=== PATIENT | male | born 1955 | race Caucasian/White ===

== ENCOUNTER 2016-06-22 20:52 | Emergency (ER) | payer OTHER ==
[2016-06-22 21:48] LABS: BASO % 0.3 % (0.0-1.0); EOS # 0.1 K/mm3 (0.0-0.50); EOS % 1.2 % (0.0-3.0); LARGE UNSTAINED CELL # 0.3 K/mm3 (0.0-0.4); LYMPH # 2.3 K/mm3 (1.5-4.5); LYMPH % 33.5 % (24.0-44.0); MEAN CORPUSCULAR HGB CONC 33.9 g/dl (32.0-36.5); MEAN CORPUSCULAR VOLUME 88.4 fl (80.0-96.0); MONO # 0.4 K/mm3 (0.0-0.8); MONO % 6.3 % (0.0-5.0); NEUTROPHILS # 3.7 K/mm3 (1.8-7.7); NEUTROPHILS % 54.6 % (36.0-66.0); PLATELET COUNT, AUTOMATED 181 k/mm3 (150-450); WHITE BLOOD COUNT 6.8 K/mm3 (4.0-10.0)
[2016-06-22 21:54] LABS: ANION GAP 8 MEQ/L (8-16); BLOOD UREA NITROGEN 18 MG/DL (7-18); CARBON DIOXIDE LEVEL 26 MEQ/L (21-32); CHLORIDE LEVEL 108 MEQ/L (98-107); CREATININE FOR GFR 1.16 MG/DL (0.70-1.30); GLOMERULAR FILTRATION RATE > 60.0 (>49); GLUCOSE, FASTING 76 MG/DL (80-110); POTASSIUM SERUM 3.9 MEQ/L (3.5-5.1); SODIUM LEVEL 142 MEQ/L (136-145)
[2016-06-22 22:00] LABS: INR 1.05
--- NOTE | 2016-06-22 23:09 | ECGEPIP ---
Stationary ECG Study [facility] - ED Test Date: 2016-06-22 Pat Name: LAMAR PIRES Department: Room: - Gender: M Party Demonstrator: LEONARD : 1955 Requested By: Destin Iqbal Order Number: [id number] Reading MD: Destin Sullivan Measurements Intervals [place] Rate: 99 P: MA: 0 QRS: 32 QRSD: 96 T: 48 QT: 356 QTc: 459 Interpretive Statements SINUS TACHYCARDIA WITH 1ST DEGREE AV BLOCK NSTTW ABNORMALITIES NO PRIORS Electronically Signed On 06-22-2016 23:08:43 EST by Destin Sullivan
--- NOTE | 2016-06-22 23:37 | EDDOCDS ---
Nurse's Notes [facility] Name: Ta Pressley Age: 60 yrs Sex: Male : 1955 Arrival Date: 06/22/2016 Time: 20:52 Bed 11 Private MD: Sal Dueñas Diagnosis: Cerebral infarction;Nicotine dependence Presentation: 06/22 20:55 Presenting complaint: EMS states: hx of stroke in December 2015. tonight started to have mlc headache only on right side, left arm heaviness and weakness. EMS states pt unsteady on feet, states pt was having a difficult time forming sentences upon arrival. upon arrival to ED, pt forming sentences, no neuro deficits noted. The last date and time the patient was known to be well was on June 21, 2016. The last date and time the patient was known to be well was was at an unknown time. No acute neurological deficit is noted. The patients blood glucose was checked before arriving to the hospital and was found to be normal. Adult Sepsis Screening: The patient does not have new or worsening altered mentation. Patient's respiratory rate is less than 22. Systolic blood pressure is greater than 100. Patient has a qSOFA score of 0- Negative Sepsis Screen. Suicide/Homicide risk assessment- the patient denies having any suicidal and/or homicidal ideations and does not present with any other emotional, behavioral or mental health complaints. Status: Patient is not a director of housing and energy services or dependent. Transition of care: patient was not received from another setting of care. 20:55 Acuity: YURIDIA Level 3 [facility] 20:55 Method Of Arrival: Ambulance [facility] Triage Assessment: 21:01 The onset of the patients symptoms was more than three hours ago. General: Appears in [facility] no apparent distress, comfortable, Behavior is appropriate for age, cooperative. Pain: Denies pain. HIV screening NA for this visit Offered previously. The patient is triaged at the bedside. See Assessment in Nurses Notes section of ED record. Neurological: Level of Consciousness is awake, alert, obeys commands, Oriented to person, place, time, Police Booking Officer are equal bilaterally Speech is normal, Facial symmetry appears normal, Denies paresthesias numbness headache Reports. Respiratory: Airway is patent Respiratory effort is even, unlabored, Respiratory pattern is regular. Derm: Skin is normal. Historical: - Allergies: No known drug Allergies; - Home Meds: 1. aspirin 325 mg Oral tab once daily (Last dose: 06/22/2016 08:00) 2. atorvastatin 40 mg oral tab once daily (Last dose: 06/22/2016 19:00) 3. fluoxetine 40 mg Oral cap once daily (Last dose: 06/22/2016 19:00) 4. ibuprofen 600 mg Oral tab 1 tab every 6 hours (Last dose: 06/22/2016 17:00) - PMHx: CVA; Hypercholesterolemia; Depression; - PSHx: Hernia repair; finger surgery; - The history from nurses notes was reviewed: but there are no nursing notes, or only partial notes available at the time of my charting. - Social history: Smoking status: Patient uses tobacco products, light tobacco smoker. No barriers to communication noted, The patient speaks fluent Tajik. - : The pt / caregiver states he / she is not on anticoagulants. Home medication list is obtained from the patient. - Hospitalizations: : No recent hospitalization is reported. - Exposure Risk Screening:: None identified. - Immunization history:: All immunizations up-to-date. - Family history: Not pertinent. - Social history:: the patient smokes cigarettes 1ppd the patient drinks alcohol. Screenin:36 Screening information is obtained from the patient. Fall risk: No risks identified. mlc Assistance ADL's: requires no assistance with activities of daily living. Abuse/DV Screen: The patient / caregiver reports he/she is: not in a situation that causes fear, pain or injury. Nutritional screening: No deficits noted. Advance Directives: Currently, there is a health care proxy, Susy Pressley, daughter. There is no active DNR order. There is no living will. There is an active Power of Automotive Wholesale Parts Advisor, Susy Pressley, daughter . home support is adequate. Assessment: 21:36 General: Appears in no apparent distress, comfortable, Behavior is appropriate for age, mlc cooperative, pleasant. Pain: Denies pain. Neurological: Level of Consciousness is awake, alert, obeys commands, Oriented to person, place, time, Police Booking Officer are equal bilaterally Moves all extremities. Speech is normal, Facial symmetry appears normal, Pupils are PERRLA, Denies numbness headache. Cardiovascular: Capillary refill < 3 seconds Heart tones S1 S2 present Rhythm is regular Chest pain is denied. Respiratory: Airway is patent Respiratory effort is even, unlabored, Respiratory pattern is regular, Breath sounds are diminished in left posterior lower lobe and right posterior lower lobe Reports cough that is non-productive, daughter reports that she has been diagnosed with pneumonia. GI: Abdomen is non- distended Bowel sounds present X 4 quads. Abd is soft and non tender X 4 quads. Derm: Skin is pink, warm & dry. 22:10 Reassessment: Patient appears in no apparent distress at this time. General: no new mlc neuro deficits. . Neurological: Level of Consciousness is awake, alert, obeys commands, Oriented to person, place, time. Respiratory: Airway is patent Respiratory effort is even, unlabored, Respiratory pattern is regular. 22:50 Reassessment: Patient appears in no apparent distress at this time. Patient denies pain mlc at this time. no changes since prior. resp easy/unlabored. no neuro deficits noted. . 23:19 Reassessment: Patient appears in no apparent distress at this time. pt resting mlc comfortably in bed, resp easy/unlabored. no changes since prior . 23:31 General: Appears in no apparent distress, comfortable, Behavior is cooperative. Pain: mlc Denies pain. Neurological: Level of Consciousness is awake, alert, Oriented to person, place, time, Police Booking Officer are equal bilaterally Moves all extremities. Respiratory: Airway is patent Respiratory effort is even, unlabored, Respiratory pattern is regular. Derm: Skin is pink, warm & dry. Vital Signs: 21:08 BP 155 / 98; Pulse 98; Resp 18; Temp 97.1(O); Pulse Ox 97% on R/A; Weight 71.21 kg (R); mlc Height 5 ft. 6 in. (167.64 cm); Pain 0/10; 21:26 BP 130 / 89 (auto/); mlc 21:27 Pulse 100 MON; mlc 21:39 Weight 73.48 kg (M); Height 5 ft. 6 in. (167.64 cm); kb5 21:41 BP 122 / 85 (auto/); mlc 21:42 Pulse 100 MON; Pulse Ox 93% ; mlc 21:54 BP 120 / 85 (auto/); mlc 21:55 Pulse 98 MON; Pulse Ox 81% ; mlc 22:09 BP 119 / 84 (auto/); mlc 22:09 Pulse 98 MON; Pulse Ox 96% ; mlc 22:24 BP 133 / 91 (auto/); mlc 22:28 Pulse 102 MON; mlc 22:39 BP 139 / 94 (auto/); mlc 22:40 Pulse 100 MON; Pulse Ox 97% ; mlc 22:54 BP 123 / 84 (auto/); mlc 22:55 Pulse 100 MON; mlc 23:09 BP 125 / 85 (auto/); mlc 23:12 Pulse 102 MON; Pulse Ox 96% ; mlc 23:24 BP 121 / 84 (auto/); mlc 23:25 Pulse 102 MON; Pulse Ox 96% ; mlc 23:32 BP 127 / 87; Pulse 103; Resp 18; Temp 97.7; Pulse Ox 96% on R/A; Pain 0/10; mlc 21:39 Body Mass Index 26.15 (73.48 kg, 167.64 cm) kb5 Vitals: 21:01 Glucose Measurement 127 per EMS. Log In Time N/A - ambulance arrival. [facility] ED Course: 20:53 Patient visited by Henry Crowe, Tin Dipper. ml3 20:53 Sal Dueñas is Private Physician. ml3 20:53 Patient moved to Waiting ml3 20:54 Malathi Aguirre,SNOW is Primary Nurse. ml3 20:54 Patient moved to 11 ml3 20:56 Destin Sullivan MD is Attending Physician. pc 20:59 Triage Initiated mlc 21:05 Patient visited by Destin Sullivan MD. pc 21:30 Basic Metabolic Profile Sent. mlc 21:30 CBC with Diff Sent. mlc 21:30 Partial Thromboplastin Time Sent. mlc 21:30 Prothrombin Time Profile\E\INR Sent. mlc 21:30 Type & Screen Sent. mlc 21:31 Maintain field IV. Dressing intact. Site clean & dry. Gauge & site: 18g right wrist. mlc 21:31 Inserted saline lock: 18 gauge in left antecubital area and blood collected. The mlc patient tolerated the procedure well. 21:34 Patient visited by Kamran Knapp PCA. kb5 21:34 EKG done. (by ED staff). Reviewed by Destin Sullivan MD. kb5 21:36 The patient / caregiver is instructed regarding the plan of care and ED course. Cardiac mlc monitor on. Pulse ox on. NIBP on. 21:43 Patient visited by Malathi Aguirre RN. mlc 22:02 Patient visited by Kamran Knapp PCA. kb5 22:08 [facility] Payment Agreement was scanned into [employer] and attached to record. gjb 22:11 Patient visited by Malathi Aguirre RN. mlc 22:13 CT Head Without Contrast Returned. EDMS 22:20 Patient visited by Laura Cage LPN. cp1 22:50 Patient visited by Malathi Aguirre,SNOW. mlc 23:19 Patient visited by Malathi Aguirre RN. mlc 23:32 No procedures done that require assistance. [facility] Point of Care Testing: Blood Glucose: 21:27 Blood Glucose: 71 mg/dL; [facility] Ranges: Order Results: Lab Order: Basic Metabolic Profile; SPEC'M 06/22/16 21:29 Test: GLUCOSE, FASTING; Value: 76; Range: 80-110; Abnormal: Below low normal; Units: MG/DL; Status: F Test: BLOOD UREA NITROGEN; Value: 18; Range: 7-18; Units: MG/DL; Status: F Test: CREATININE FOR GFR; Value: 1.16; Range: 0.70-1.30; Units: MG/DL; Status: F Test: GLOMERULAR FILTRATION RATE; Value: > 60.0; Range: >49; Status: F Test: SODIUM LEVEL; Value: 142; Range: 136-145; Units: MEQ/L; Status: F Test: POTASSIUM SERUM; Value: 3.9; Range: 3.5-5.1; Units: MEQ/L; Status: F Test: CHLORIDE LEVEL; Value: 108; Range: 98-107; Abnormal: Above high normal; Units: MEQ/L; Status: F Test: CARBON DIOXIDE LEVEL; Value: 26; Range: 21-32; Units: MEQ/L; Status: F Test: ANION GAP; Value: 8; Range: 8-16; Units: MEQ/L; Status: F Test: CALCIUM LEVEL; Value: 9.0; Range: 8.8-10.2; Units: MG/DL; Status: F Test Note: ; Units are mL/min/1.73 m2 Chronic Kidney Disease Staging per NKF: Stage I & II GFR >=60 Normal to Mildly Decreased Stage III GFR 30-59 Moderately Decreased Stage IV GFR 15-29 Severely Decreased Stage V GFR <15 Very Little GFR Left ESRD GFR <15 on [employer] Lab Order: CBC with Diff; SPEC'M 06/22/16 21:29 Test: WHITE BLOOD COUNT; Value: 6.8; Range: 4.0-10.0; Units: K/mm3; Status: F Test: RED BLOOD COUNT; Value: 5.55; Range: 4.30-6.10; Units: M/mm3; Status: F Test: HEMOGLOBIN; Value: 16.7; Range: 14.0-18.0; Units: g/dl; Status: F Test: HEMATOCRIT; Value: 49.1; Range: 42.0-52.0; Units: %; Status: F Test: MEAN CORPUSCULAR VOLUME; Value: 88.4; Range: 80.0-96.0; Units: fl; Status: F Test: MEAN CORPUSCULAR HEMOGLOBIN; Value: 30.0; Range: 27.0-33.0; Units: pg; Status: F Test: MEAN CORPUSCULAR HGB CONC; Value: 33.9; Range: 32.0-36.5; Units: g/dl; Status: F Test: RED CELL DISTRIBUTION WIDTH; Value: 13.0; Range: 11.5-14.5; Units: %; Status: F Test: PLATELET COUNT, AUTOMATED; Value: 181; Range: 150-450; Units: k/mm3; Status: F Test: NEUTROPHILS %; Value: 54.6; Range: 36.0-66.0; Units: %; Status: F Test: LYMPH %; Value: 33.5; Range: 24.0-44.0; Units: %; Status: F Test: MONO %; Value: 6.3; Range: 0.0-5.0; Abnormal: Above high normal; Units: %; Status: F Test: EOS %; Value: 1.2; Range: 0.0-3.0; Units: %; Status: F Test: BASO %; Value: 0.3; Range: 0.0-1.0; Units: %; Status: F Test: LARGE UNSTAINED CELL %; Value: 4.0; Range: 0.0-4.0; Units: %; Status: F Test: NEUTROPHILS #; Value: 3.7; Range: 1.8-7.7; Units: K/mm3; Status: F Test: LYMPH #; Value: 2.3; Range: 1.5-4.5; Units: K/mm3; Status: F Test: MONO #; Value: 0.4; Range: 0.0-0.8; Units: K/mm3; Status: F Test: EOS #; Value: 0.1; Range: 0.0-0.50; Units: K/mm3; Status: F Test: BASO #; Value: 0.0; Range: 0.0-0.2; Units: K/mm3; Status: F Test: LARGE UNSTAINED CELL #; Value: 0.3; Range: 0.0-0.4; Units: K/mm3; Status: F Lab Order: Partial Thromboplastin Time; [facility]06/22/16 21:29 Test: PARTIAL THROMBOPLASTIN TIME; Value: 26.6; Range: 26.6-37.1; Units: SECONDS; Status: F Lab Order: Prothrombin Time Profile\E\INR; [facility]06/22/16 21:29 Test: PROTHROMBIN TIME; Value: 13.8; Range: 12.3-14.5; Units: SECONDS; Status: F Test: INR; Value: 1.05; Status: F Test Note: ; THERAPUTIC HUMAN INR VALUES INDICATIONS NORMAL RANGES PROPHYLAXIS/TREATMENT OF: VENOUS THROMBOSIS 2.0-3.0 PULMONARY EMBOLISM 2.0-3.0 PREVENTION OF SYSTEMIC EMBOLISM FROM: TISSUE HEART VALVES 2.0-3.0 ACUTE MYOCARDIAL INFARCTION 2.0-3.0 VALVULAR HEART DISEASE 2.0-3.0 ATRIAL FIBRILLATION 2.0-3.0 MECHANICAL VALVES(HIGH RISK) 2.5-3.5 RECURRENT MYOCARDIAL INFARCTION 2.5-3.5 Lab Order: Type & Screen; 06/22/16 21:29 Test: BLOOD TYPE; Value: A POS; Status: F Test: AB SCREEN (INDIRECT RACHELLE)GEL; Value: NEGATIVE; Status: F Lab Order: Fingerstick Blood Sugar; [facility]06/[facility] 21:18 Test: BEDSIDE GLUCOSE; Value: 71; Range: 80-115; Abnormal: Below low normal; Units: MG/DL; Status: F Radiology Order: CT Head Without Contrast Test: CT Head Without Contrast REASON FOR EXAMINATION: CVA <4.5hrs; ; CLINICAL HISTORY: CVA; TECHNIQUE: Multiple axial CT images were obtained through the brain without IV contrast material.; COMMENTS:; There is normal configuration of sella turcica. There are no intra or extra-axial collections. There; is no mass effect or midline shift. There is no evidence of hematoma formation. No hydrocephalus is p; resent. The ventricles are symmetrical. No abnormal calcifications are present.; There is diffuse age-appropriate cerebellar and cerebral atrophy with proportionally dilated ventricl; es and cortical sulci.; There is a wedge-shaped hypodense area noted in the right parietal lobe compatible with ischemic stro; ke, probably subacute. Correlation with MRI with diffusion is recommended.; There are bilateral periventricular and subcortical white matter hypolucencies compatible with mild c; hronic microvascular disease.; IMPRESSION:; 1. Age-appropriate cerebellar and cerebral atrophy.; 2. Mild chronic microvascular disease.; 3. Wedge-shaped hypodense area noted in the right parietal lobe compatible with ischemic stroke, prob; ably subacute. Correlation with MRI with diffusion is recommended.; Thank you for your kind referral of this patient.; ; ; Outcome: 21:43 CT Study completed. [facility] 22:30 ER care complete, transfer ordered by Provider. 22:32 Admission hand-off: Report called to Carly Raya RN. [facility] 23:32 Discharge Assessment: Patient awake, alert and oriented x 3. No cognitive and/or mlc functional deficits noted. Patient verbalized understanding of disposition instructions. patient administered narcotics - no. The following High Risk Discharge criteria are identified: None. Transferred to [facility]. by EMS ground [facility] ambulance report to accompanying personnel Beena Stephen, location director and Hyacitnh Fonseca EMT. Condition: good Condition: stable. Property :Personal belongings accompany Pt. 23:35 Patient left the ED. [facility] Signatures: Dispatcher [employer] EDMS Destin Sullivan MD MD pc Lopresti, Mary-Elizabeth, Tin Dipper Unit ml3 Kamran Knapp, CCO CCO kb5 Laura Cage,TURNAROUND ENGINEER TURNAROUND ENGINEER cp1 Malathi Aguirre RN RN Janine Blunt MTDD
--- NOTE | 2016-06-22 23:37 | EDDOCDS ---
Physician Documentation [facility] Name: Ta Pressley Age: 60 yrs Sex: Male : 1955 Arrival Date: 06/22/2016 Time: 20:52 Bed 11 Private MD: Sal Dueñas Disposition: 06/22 22:17 Critical Care: Critical care not applicable. pc Disposition: 06/22/16 22:30 Transfer ordered to [facility]. Diagnosis are Cerebral infarction, Nicotine dependence. - Reason for transfer: Higher level of care. - Accepting physician is Dr. Hunt. - Condition is Stable. - Problem is new. - Symptoms are unchanged. HPI: 21:15 This 60 yrs old Male presents to ER via Ambulance with complaints of S/S of pc Possible Stroke. 21:15 The history is obtained from the patient. The patient presents to the emergency pc department with weakness of the left upper extremity, left lower extremity. Onset: The symptoms/episode began/occurred suddenly, at 18:00, and improved 30 minutes ago, He was sitting on his couch watching TV when his left arm "stopped working, like when I had that stroke in December". He was unable to move his arm to put on his coat. He felt "wobbly" when he was trying to alk, with his left leg feeling weak. He had a mild headache, pointing to his right temporal area, which has since resolved. He called EMS after 2-3 hours, "just to get checked out". He arrives stating his left arm is now back to normal and his leg feels "almost normal". He had a CVA in December of last year [facility] in [place], when he had these same symptoms but they did not resolve until he was seen at the hospital. He is not sure if he received thrombolytics. He is compliant with his meds but continues to smoke 1ppd.. Historical: - Allergies: No known drug Allergies; - Home Meds: 1. aspirin 325 mg Oral tab once daily (Last dose: 06/22/2016 08:00) 2. atorvastatin 40 mg oral tab once daily (Last dose: 06/22/2016 19:00) 3. fluoxetine 40 mg Oral cap once daily (Last dose: 06/22/2016 19:00) 4. ibuprofen 600 mg Oral tab 1 tab every 6 hours (Last dose: 06/22/2016 17:00) - PMHx: CVA; Hypercholesterolemia; Depression; - PSHx: Hernia repair; finger surgery; - The history from nurses notes was reviewed: but there are no nursing notes, or only partial notes available at the time of my charting. - Social history: Smoking status: Patient uses tobacco products, light tobacco smoker. No barriers to communication noted, The patient speaks fluent Kyrgyz. - : The pt / caregiver states he / she is not on anticoagulants. Home medication list is obtained from the patient. - Hospitalizations: : No recent hospitalization is reported. - Exposure Risk Screening:: None identified. - Immunization history:: All immunizations up-to-date. - Family history: Not pertinent. - Social history:: the patient smokes cigarettes 1ppd the patient drinks alcohol. ROS: 21:15 All systems are negative except as listed. pc Exam: 21:15 General Appearance: no acute distress, alert. pc 21:15 EENT: normal eye inspection, ears, nose and throat normal, pharynx normal, mucous membranes moist no apparent trauma. 21:15 Neck: The exam reveals no acute abnormalities. ROM is normal and painless. No nuchal rigidity is noted.. 21:15 Respiratory: no respiratory distress, normal breath sounds, chest non-tender. 21:15 CVS: regular pulse rate, regular rhythm, normal S1 and S2, no murmurs, strong peripheral pulses, normal capillary refill. 21:15 Abdomen: soft, non-tender, no organomegaly, normal bowel sounds. 21:15 Back: normal inspection. 21:15 Skin: skin color is normal, warm, dry. 21:15 Extremities: The extremities have a grossly normal appearance, are non-tender, without acute ROM abnormalities, no pedal edema. 21:15 Neuro: oriented x 3, cranial nerves normal as tested, 4/5 strength in LLE with drift at 5 seconds. NIHSS of 1. 21:15 Neuro: no sensory deficits, Cerebellar function: normal finger to nose testing, Romberg testing is negative. 21:15 Psych: normal mood. Vital Signs: 21:08 BP 155 / 98; Pulse 98; Resp 18; Temp 97.1(O); Pulse Ox 97% on R/A; Weight 71.21 kg / mlc 156.99 lbs (R); Height 5 ft. 6 in. (167.64 cm); Pain 0/10; 21:26 BP 130 / 89 (auto/); mlc 21:27 Pulse 100 MON; mlc 21:39 Weight 73.48 kg / 162 lbs (M); Height 5 ft. 6 in. (167.64 cm); kb5 21:41 BP 122 / 85 (auto/); mlc 21:42 Pulse 100 MON; Pulse Ox 93% ; mlc 21:54 BP 120 / 85 (auto/); mlc 21:55 Pulse 98 MON; Pulse Ox 81% ; mlc 22:09 BP 119 / 84 (auto/); mlc 22:09 Pulse 98 MON; Pulse Ox 96% ; mlc 22:24 BP 133 / 91 (auto/); mlc 22:28 Pulse 102 MON; mlc 22:39 BP 139 / 94 (auto/); mlc 22:40 Pulse 100 MON; Pulse Ox 97% ; mlc 22:54 BP 123 / 84 (auto/); mlc 22:55 Pulse 100 MON; mlc 23:09 BP 125 / 85 (auto/); mlc 23:12 Pulse 102 MON; Pulse Ox 96% ; mlc 23:24 BP 121 / 84 (auto/); mlc 23:25 Pulse 102 MON; Pulse Ox 96% ; mlc 23:32 BP 127 / 87; Pulse 103; Resp 18; Temp 97.7; Pulse Ox 96% on R/A; Pain 0/10; mlc 21:39 Body Mass Index 26.15 (73.48 kg, 167.64 cm) kb5 MDM: 21:09 Consult [facility]: Telemedicine Stroke Attending ordered. pc 21:09 RN interventions must not delay CT ordered. pc 21:09 Air Intelligence Specialist/Pulse Ox/q 15 min VS ordered. pc 21:09 Accucheck ordered. pc 21:09 IV Saline Lock ordered. pc 21:09 Neuro VS q 15 Minutes ordered. pc 21:09 Patient must be on CC stretcher and weighed via bed scale ordered. pc 21:09 Rhythm Strip to chart ordered. pc 21:10 Basic Metabolic Profile Ordered. EDMS 21:10 CBC with Diff Ordered. EDMS 21:10 Partial Thromboplastin Time Ordered. EDMS 21:10 Prothrombin Time Profile\\E\\INR Ordered. EDMS 21:10 Type & Screen Ordered. EDMS 21:10 CT Head Without Contrast Ordered. EDMS 21:11 Chest, 1 View Ordered. EDMS 21:11 ECG WITH READING ER PHYS+CARDIAG ordered. EDMS 21:15 Differential Diagnosis: CVA with NIHSS of 1, presenting with resolving symptoms at 3+ pc hours after onset. Plan: CT, d/w Neurology. 21:33 Test interpretation: EKG. pc 21:35 Fingerstick Blood Sugar Ordered. EDMS 21:54 Financial registration complete. gjb 21:59 Basic Metabolic Profile Reviewed. pc 21:59 CBC with Diff Reviewed. pc 21:59 Fingerstick Blood Sugar Reviewed. pc 21:59 Partial Thromboplastin Time Reviewed. pc 22:08 [facility] [place] Payment Agreement was scanned into [employer] and attached to record. gjb 22:17 Data reviewed: old medical records, vital signs, nurses notes, EKG(s), lab test pc results, all radiology studies and available results. Test interpretation: LAB - all labs as ordered have been reviewed, interpreted and considered in the overall management of the clinical presentation; X-RAY - interpreted by me, 1 view chest chronic obstructive pulmonary disease pattern, interpreted by Radiologist and personally reviewed, discussed with Radiologist, Head CT; old right parietal CVA, else nad. The patient has been re-examined and re-evaluated. There is no appreciated change of the patient's symptoms at this time. Physician consultation: Dr. Guerra regarding patient's condition, and he, the telemedicine Stroke attending at [facility], advises that at [id number], he is out side of the window for IV tPA but that he should be transferred to [facility] Stroke attending.. 22:17 Physician consultation: Dr. Hunt was contacted at 22:19, regarding patient's pc condition, and she accepts in transfer to [facility]. Disposition: The historical points, examination findings, and any diagnostic results supporting the provided diagnosis, were discussed with the patient or legal guardian. The decision to transfer to the patient to another facility was explained. 22:35 Partial Thromboplastin Time Reviewed. pc 22:35 Prothrombin Time Profile\\E\\INR Reviewed. pc 22:35 Type & Screen Reviewed. pc 22:35 CT Head Without Contrast Reviewed. pc 23:08 Consult [facility] Transfer Center: Telemedicine Stroke Attending complete. jun EC:33 Rate is 99 beats/min. Rhythm is regular, Normal Sinus Rhythm with 1st degree heart pc block. QRS [place] is Normal. [place] interval is prolonged. QRS interval is normal. QT interval is normal. No Q waves. T waves are Normal. No ST changes noted. Clinical impression: Normal Sinus Rhythm and 1st degree heart block. Point of Care Testing: Blood Glucose: 21:27 Blood Glucose: 71 mg/dL; [facility] [place] Ranges: Signatures: Dispatcher [employer] Destin Dunn MD MD pc Newman, SNOW Mercado RN, Mandy, RN RN mlc Beck, Gabriela gjb The chart was reviewed and I authenticate all verbal orders and agree with the evaluation and treatment provided.Corrections: (The following items were deleted from the chart) 22:17 21:15 Onset: The symptoms/episode began/occurred suddenly, at 18:00, and improved 30 pc minutes ago, He was sitting on his couch watching TV when his left arm "stopped working, like when I had that stroke in December". He was unable to move his arm to put on his coat. He felt "wobbly" when he was trying to alk, with his left leg feeling weak. He had a mild headache, pointing to his right temporal area, which has since resolved. He called EMS after 2-3 hours, "just to get checked out". He arrives stating his left arm is now back to normal and his leg feels "almost normal". He had a CVA in December of last year [facility] in [place], when he had these same symptoms but they did not resolve until he was seen at the hospital. He is not sure if he received thrombolytics. He is compliant with his meds but continues to smoke 1ppd., pc Attachments: 22:08 [facility] Payment Agreement aaron STEPHEN
--- NOTE | 2016-06-23 09:54 | REP ---
Portable chest x-ray: Single view. History: CVA less than 4.5 hours. Findings: The lungs are well inflated and clear. Pleural angles are sharp. Heart size is normal. Pulmonary vasculature is not increased. No significant bony abnormality is seen. Impression: No active disease. Signed by Ronni James MD 06/23/2016 10:23 A
--- NOTE | 2016-06-25 12:03 | EDDOCDS ---
Physician Documentation [facility] Name: Ta Pressley Age: 60 yrs Sex: Male : 1955 Arrival Date: 06/22/2016 Time: 20:52 Bed 11 Private MD: Sal Dueñas Disposition: 06/22 22:17 Critical Care: Critical care not applicable. pc Disposition: 06/22/16 22:30 Transfer ordered to [facility]. Diagnosis are Cerebral infarction, Nicotine dependence. - Reason for transfer: Higher level of care. - Accepting physician is Dr. Hunt. - Condition is Stable. - Problem is new. - Symptoms are unchanged. HPI: 21:15 This 60 yrs old Male presents to ER via Ambulance with complaints of S/S of pc Possible Stroke. 21:15 The history is obtained from the patient. The patient presents to the emergency pc department with weakness of the left upper extremity, left lower extremity. Onset: The symptoms/episode began/occurred suddenly, at 18:00, and improved 30 minutes ago, He was sitting on his couch watching TV when his left arm "stopped working, like when I had that stroke in December". He was unable to move his arm to put on his coat. He felt "wobbly" when he was trying to alk, with his left leg feeling weak. He had a mild headache, pointing to his right temporal area, which has since resolved. He called EMS after 2-3 hours, "just to get checked out". He arrives stating his left arm is now back to normal and his leg feels "almost normal". He had a CVA in December of last year [facility] in [place], when he had these same symptoms but they did not resolve until he was seen at the hospital. He is not sure if he received thrombolytics. He is compliant with his meds but continues to smoke 1ppd.. Historical: - Allergies: No known drug Allergies; - Home Meds: 1. aspirin 325 mg Oral tab once daily (Last dose: 06/22/2016 08:00) 2. atorvastatin 40 mg oral tab once daily (Last dose: 06/22/2016 19:00) 3. fluoxetine 40 mg Oral cap once daily (Last dose: 06/22/2016 19:00) 4. ibuprofen 600 mg Oral tab 1 tab every 6 hours (Last dose: 06/22/2016 17:00) - PMHx: CVA; Hypercholesterolemia; Depression; - PSHx: Hernia repair; finger surgery; - The history from nurses notes was reviewed: but there are no nursing notes, or only partial notes available at the time of my charting. - Social history: Smoking status: Patient uses tobacco products, light tobacco smoker. No barriers to communication noted, The patient speaks fluent Kiswahili. - : The pt / caregiver states he / she is not on anticoagulants. Home medication list is obtained from the patient. - Hospitalizations: : No recent hospitalization is reported. - Exposure Risk Screening:: None identified. - Immunization history:: All immunizations up-to-date. - Family history: Not pertinent. - Social history:: the patient smokes cigarettes 1ppd the patient drinks alcohol. ROS: 21:15 All systems are negative except as listed. pc Exam: 21:15 General Appearance: no acute distress, alert. pc 21:15 EENT: normal eye inspection, ears, nose and throat normal, pharynx normal, mucous membranes moist no apparent trauma. 21:15 Neck: The exam reveals no acute abnormalities. ROM is normal and painless. No nuchal rigidity is noted.. 21:15 Respiratory: no respiratory distress, normal breath sounds, chest non-tender. 21:15 CVS: regular pulse rate, regular rhythm, normal S1 and S2, no murmurs, strong peripheral pulses, normal capillary refill. 21:15 Abdomen: soft, non-tender, no organomegaly, normal bowel sounds. 21:15 Back: normal inspection. 21:15 Skin: skin color is normal, warm, dry. 21:15 Extremities: The extremities have a grossly normal appearance, are non-tender, without acute ROM abnormalities, no pedal edema. 21:15 Neuro: oriented x 3, cranial nerves normal as tested, 4/5 strength in LLE with drift at 5 seconds. NIHSS of 1. 21:15 Neuro: no sensory deficits, Cerebellar function: normal finger to nose testing, Romberg testing is negative. 21:15 Psych: normal mood. Vital Signs: 21:08 BP 155 / 98; Pulse 98; Resp 18; Temp 97.1(O); Pulse Ox 97% on R/A; Weight 71.21 kg / mlc 156.99 lbs (R); Height 5 ft. 6 in. (167.64 cm); Pain 0/10; 21:26 BP 130 / 89 (auto/); mlc 21:27 Pulse 100 MON; mlc 21:39 Weight 73.48 kg / 162 lbs (M); Height 5 ft. 6 in. (167.64 cm); kb5 21:41 BP 122 / 85 (auto/); mlc 21:42 Pulse 100 MON; Pulse Ox 93% ; mlc 21:54 BP 120 / 85 (auto/); mlc 21:55 Pulse 98 MON; Pulse Ox 81% ; mlc 22:09 BP 119 / 84 (auto/); mlc 22:09 Pulse 98 MON; Pulse Ox 96% ; mlc 22:24 BP 133 / 91 (auto/); mlc 22:28 Pulse 102 MON; mlc 22:39 BP 139 / 94 (auto/); mlc 22:40 Pulse 100 MON; Pulse Ox 97% ; mlc 22:54 BP 123 / 84 (auto/); mlc 22:55 Pulse 100 MON; mlc 23:09 BP 125 / 85 (auto/); mlc 23:12 Pulse 102 MON; Pulse Ox 96% ; mlc 23:24 BP 121 / 84 (auto/); mlc 23:25 Pulse 102 MON; Pulse Ox 96% ; mlc 23:32 BP 127 / 87; Pulse 103; Resp 18; Temp 97.7; Pulse Ox 96% on R/A; Pain 0/10; mlc 21:39 Body Mass Index 26.15 (73.48 kg, 167.64 cm) kb5 MDM: 21:[address] [facility]: Telemedicine Stroke Attending ordered. pc 21:09 RN interventions must not delay CT ordered. pc 21:09 Gasoline Tractor Operator/Pulse Ox/q 15 min VS ordered. pc 21:09 Accucheck ordered. pc 21:09 IV Saline Lock ordered. pc 21:09 Neuro VS q 15 Minutes ordered. pc 21:09 Patient must be on CC stretcher and weighed via bed scale ordered. pc 21:09 Rhythm Strip to chart ordered. pc 21:10 Basic Metabolic Profile Ordered. EDMS 21:10 CBC with Diff Ordered. EDMS 21:10 Partial Thromboplastin Time Ordered. EDMS 21:10 Prothrombin Time Profile\\E\\INR Ordered. EDMS 21:10 Type & Screen Ordered. EDMS 21:10 CT Head Without Contrast Ordered. EDMS 21:11 Chest, 1 View Ordered. EDMS 21:11 ECG WITH READING ER PHYS+CARDIAG ordered. EDMS 21:15 Differential Diagnosis: CVA with NIHSS of 1, presenting with resolving symptoms at 3+ pc hours after onset. Plan: CT, d/w Neurology. 21:33 Test interpretation: EKG. pc 21:35 Fingerstick Blood Sugar Ordered. EDMS 21:54 Financial registration complete. gjb 21:59 Basic Metabolic Profile Reviewed. pc 21:59 CBC with Diff Reviewed. pc 21:59 Fingerstick Blood Sugar Reviewed. pc 21:59 Partial Thromboplastin Time Reviewed. pc 22:08 [facility] [place] Agreement was scanned into [employer] and attached to record. gjb 22:17 Data reviewed: old medical records, vital signs, nurses notes, EKG(s), lab test pc results, all radiology studies and available results. Test interpretation: LAB - all labs as ordered have been reviewed, interpreted and considered in the overall management of the clinical presentation; X-RAY - interpreted by me, 1 view chest chronic obstructive pulmonary disease pattern, interpreted by Radiologist and personally reviewed, discussed with Radiologist, Head CT; old right parietal CVA, else nad. The patient has been re-examined and re-evaluated. There is no appreciated change of the patient's symptoms at this time. Physician consultation: Dr. Guerra regarding patient's condition, and he, the telemedicine Stroke attending at [facility], advises that at [id number], he is out side of the window for IV tPA but that he should be transferred to [facility] Stroke attending.. 22:17 Physician consultation: Dr. Hunt was contacted at 22:19, regarding patient's pc condition, and she accepts in transfer to [facility]. Disposition: The historical points, examination findings, and any diagnostic results supporting the provided diagnosis, were discussed with the patient or legal guardian. The decision to transfer to the patient to another facility was explained. 22:35 Partial Thromboplastin Time Reviewed. pc 22:35 Prothrombin Time Profile\\E\\INR Reviewed. pc 22:35 Type & Screen Reviewed. pc 22:35 CT Head Without Contrast Reviewed. pc 23:08 Consult [facility] Transfer Center: Telemedicine Stroke Attending complete. jun 16 11:17 ECG/EKG was scanned into [employer] and attached to record. gb 11:17 Trend VS was scanned into [employer] and attached to record. gb 11:17 Radiology Report was scanned into [employer] and attached to record. 11:18 Other: STROKE SCALE was scanned into [employer] and attached to record. EC/07 21:33 Rate is 99 beats/min. Rhythm is regular, Normal Sinus Rhythm with 1st degree heart pc block. QRS [place] is Normal. [place] interval is prolonged. QRS interval is normal. QT interval is normal. No Q waves. T waves are Normal. No ST changes noted. Clinical impression: Normal Sinus Rhythm and 1st degree heart block. Point of Care Testing: Blood Glucose: 21:27 Blood Glucose: 71 mg/dL; [facility] [place] Ranges: Signatures: Dispatcher [employer] EDMS Destin Sullivan MD MD pc Newman, Jill New, RN RN jan Barnhardt, Gloria, Reg Reg gb Booth, Mandy, RN RN mlc Beck, Gabriela gjb The chart was reviewed and I authenticate all verbal orders and agree with the evaluation and treatment provided.Corrections: (The following items were deleted from the chart) 22:17 21:15 Onset: The symptoms/episode began/occurred suddenly, at 18:00, and improved 30 pc minutes ago, He was sitting on his couch watching TV when his left arm "stopped working, like when I had that stroke in December". He was unable to move his arm to put on his coat. He felt "wobbly" when he was trying to alk, with his left leg feeling weak. He had a mild headache, pointing to his right temporal area, which has since resolved. He called EMS after 2-3 hours, "just to get checked out". He arrives stating his left arm is now back to normal and his leg feels "almost normal". He had a CVA in December of last year [facility] in [place], when he had these same symptoms but they did not resolve until he was seen at the hospital. He is not sure if he received thrombolytics. He is compliant with his meds but continues to smoke 1ppd., pc Attachments: 22:08 [facility] Payment Agreement gjb 06/23 11:17 ECG/EKG Chart Complete MTDD
--- NOTE | 2016-06-25 12:03 | EDDOCDS ---
Nurse's Notes [facility] Name: Ta Pires Age: 60 yrs Sex: Male : 1955 Arrival Date: 06/22/2016 Time: 20:52 Bed 11 Private MD: Sal Dueñas Diagnosis: Cerebral infarction;Nicotine dependence Presentation: 06/22 20:55 Presenting complaint: EMS states: hx of stroke in December 2015. tonight started to have mlc headache only on right side, left arm heaviness and weakness. EMS states pt unsteady on feet, states pt was having a difficult time forming sentences upon arrival. upon arrival to ED, pt forming sentences, no neuro deficits noted. The last date and time the patient was known to be well was on June 21, 2016. The last date and time the patient was known to be well was was at an unknown time. No acute neurological deficit is noted. The patients blood glucose was checked before arriving to the hospital and was found to be normal. Adult Sepsis Screening: The patient does not have new or worsening altered mentation. Patient's respiratory rate is less than 22. Systolic blood pressure is greater than 100. Patient has a qSOFA score of 0- Negative Sepsis Screen. Suicide/Homicide risk assessment- the patient denies having any suicidal and/or homicidal ideations and does not present with any other emotional, behavioral or mental health complaints. Status: Patient is not a director of cloud services or dependent. Transition of care: patient was not received from another setting of care. 20:55 Acuity: YURIDIA Level 3 [facility] 20:55 Method Of Arrival: Ambulance [facility] Triage Assessment: 21:01 The onset of the patients symptoms was more than three hours ago. General: Appears in [facility] no apparent distress, comfortable, Behavior is appropriate for age, cooperative. Pain: Denies pain. HIV screening NA for this visit Offered previously. The patient is triaged at the bedside. See Assessment in Nurses Notes section of ED record. Neurological: Level of Consciousness is awake, alert, obeys commands, Oriented to person, place, time, Rail Car Driver are equal bilaterally Speech is normal, Facial symmetry appears normal, Denies paresthesias numbness headache Reports. Respiratory: Airway is patent Respiratory effort is even, unlabored, Respiratory pattern is regular. Derm: Skin is normal. Historical: - Allergies: No known drug Allergies; - Home Meds: 1. aspirin 325 mg Oral tab once daily (Last dose: 06/22/2016 08:00) 2. atorvastatin 40 mg oral tab once daily (Last dose: 06/22/2016 19:00) 3. fluoxetine 40 mg Oral cap once daily (Last dose: 06/22/2016 19:00) 4. ibuprofen 600 mg Oral tab 1 tab every 6 hours (Last dose: 06/22/2016 17:00) - PMHx: CVA; Hypercholesterolemia; Depression; - PSHx: Hernia repair; finger surgery; - The history from nurses notes was reviewed: but there are no nursing notes, or only partial notes available at the time of my charting. - Social history: Smoking status: Patient uses tobacco products, light tobacco smoker. No barriers to communication noted, The patient speaks fluent Macedonian. - : The pt / caregiver states he / she is not on anticoagulants. Home medication list is obtained from the patient. - Hospitalizations: : No recent hospitalization is reported. - Exposure Risk Screening:: None identified. - Immunization history:: All immunizations up-to-date. - Family history: Not pertinent. - Social history:: the patient smokes cigarettes 1ppd the patient drinks alcohol. Screenin:36 Screening information is obtained from the patient. Fall risk: No risks identified. mlc Assistance ADL's: requires no assistance with activities of daily living. Abuse/DV Screen: The patient / caregiver reports he/she is: not in a situation that causes fear, pain or injury. Nutritional screening: No deficits noted. Advance Directives: Currently, there is a health care proxy, Susy Pires, daughter. There is no active DNR order. There is no living will. There is an active Power of Stock Handler, Susy Pires, daughter . home support is adequate. Assessment: 21:36 General: Appears in no apparent distress, comfortable, Behavior is appropriate for age, mlc cooperative, pleasant. Pain: Denies pain. Neurological: Level of Consciousness is awake, alert, obeys commands, Oriented to person, place, time, Rail Car Driver are equal bilaterally Moves all extremities. Speech is normal, Facial symmetry appears normal, Pupils are PERRLA, Denies numbness headache. Cardiovascular: Capillary refill < 3 seconds Heart tones S1 S2 present Rhythm is regular Chest pain is denied. Respiratory: Airway is patent Respiratory effort is even, unlabored, Respiratory pattern is regular, Breath sounds are diminished in left posterior lower lobe and right posterior lower lobe Reports cough that is non-productive, daughter reports that she has been diagnosed with pneumonia. GI: Abdomen is non- distended Bowel sounds present X 4 quads. Abd is soft and non tender X 4 quads. Derm: Skin is pink, warm & dry. 22:10 Reassessment: Patient appears in no apparent distress at this time. General: no new mlc neuro deficits. . Neurological: Level of Consciousness is awake, alert, obeys commands, Oriented to person, place, time. Respiratory: Airway is patent Respiratory effort is even, unlabored, Respiratory pattern is regular. 22:50 Reassessment: Patient appears in no apparent distress at this time. Patient denies pain mlc at this time. no changes since prior. resp easy/unlabored. no neuro deficits noted. . 23:19 Reassessment: Patient appears in no apparent distress at this time. pt resting mlc comfortably in bed, resp easy/unlabored. no changes since prior . 23:31 General: Appears in no apparent distress, comfortable, Behavior is cooperative. Pain: mlc Denies pain. Neurological: Level of Consciousness is awake, alert, Oriented to person, place, time, Rail Car Driver are equal bilaterally Moves all extremities. Respiratory: Airway is patent Respiratory effort is even, unlabored, Respiratory pattern is regular. Derm: Skin is pink, warm & dry. Vital Signs: 21:08 BP 155 / 98; Pulse 98; Resp 18; Temp 97.1(O); Pulse Ox 97% on R/A; Weight 71.21 kg (R); mlc Height 5 ft. 6 in. (167.64 cm); Pain 0/10; 21:26 BP 130 / 89 (auto/); mlc 21:27 Pulse 100 MON; mlc 21:39 Weight 73.48 kg (M); Height 5 ft. 6 in. (167.64 cm); kb5 21:41 BP 122 / 85 (auto/); mlc 21:42 Pulse 100 MON; Pulse Ox 93% ; mlc 21:54 BP 120 / 85 (auto/); mlc 21:55 Pulse 98 MON; Pulse Ox 81% ; mlc 22:09 BP 119 / 84 (auto/); mlc 22:09 Pulse 98 MON; Pulse Ox 96% ; mlc 22:24 BP 133 / 91 (auto/); mlc 22:28 Pulse 102 MON; mlc 22:39 BP 139 / 94 (auto/); mlc 22:40 Pulse 100 MON; Pulse Ox 97% ; mlc 22:54 BP 123 / 84 (auto/); mlc 22:55 Pulse 100 MON; mlc 23:09 BP 125 / 85 (auto/); mlc 23:12 Pulse 102 MON; Pulse Ox 96% ; mlc 23:24 BP 121 / 84 (auto/); mlc 23:25 Pulse 102 MON; Pulse Ox 96% ; mlc 23:32 BP 127 / 87; Pulse 103; Resp 18; Temp 97.7; Pulse Ox 96% on R/A; Pain 0/10; mlc 21:39 Body Mass Index 26.15 (73.48 kg, 167.64 cm) kb5 Vitals: 21:01 Glucose Measurement 127 per EMS. Log In Time N/A - ambulance arrival. [facility] ED Course: 20:53 Patient visited by Henry Crowe, Quality Control Inspector Heading. ml3 20:53 Sal Dueñas is Private Physician. ml3 20:53 Patient moved to Waiting ml3 20:54 Malathi Aguirre,SNOW is Primary Nurse. ml3 20:54 Patient moved to 11 ml3 20:56 Destin Sullivan MD is Attending Physician. pc 20:59 Triage Initiated mlc 21:05 Patient visited by Destin Sullivan MD. pc 21:30 Basic Metabolic Profile Sent. mlc 21:30 CBC with Diff Sent. mlc 21:30 Partial Thromboplastin Time Sent. mlc 21:30 Prothrombin Time Profile\E\INR Sent. mlc 21:30 Type & Screen Sent. mlc 21:31 Maintain field IV. Dressing intact. Site clean & dry. Gauge & site: 18g right wrist. mlc 21:31 Inserted saline lock: 18 gauge in left antecubital area and blood collected. The mlc patient tolerated the procedure well. 21:34 Patient visited by Kamran Knapp PCA. kb5 21:34 EKG done. (by ED staff). Reviewed by Destin Sullivan MD. kb5 21:36 The patient / caregiver is instructed regarding the plan of care and ED course. Cardiac mlc monitor on. Pulse ox on. NIBP on. 21:43 Patient visited by Malathi Aguirre RN. mlc 22:02 Patient visited by Kamran Knapp PCA. kb5 22:08 [facility] Payment Agreement was scanned into [employer] and attached to record. gjb 22:11 Patient visited by Malathi Aguirre RN. mlc 22:13 CT Head Without Contrast Returned. EDMS 22:20 Patient visited by Laura Cage LPN. cp1 22:50 Patient visited by Malathi Aguirre,SNOW. mlc 23:19 Patient visited by Malathi Aguirre,SNOW. mlc 23:32 No procedures done that require assistance. mlc 23:42 ELECTROCARDIOGRAM ADULT Returned. EDMS 06/23 10:12 Chest, 1 View Returned. EDMS 11:17 ECG/EKG was scanned into [employer] and attached to record. gb 11:17 Trend VS was scanned into [employer] and attached to record. gb 11:17 Radiology Report was scanned into [employer] and attached to record. gb 11:18 Other: STROKE SCALE was scanned into [employer] and attached to record. gb Attachments: 11:17 Trend VS gb Point of Care Testing: Blood Glucose: 06/22 21:27 Blood Glucose: 71 mg/dL; mlc Ranges: Order Results: Lab Order: Basic Metabolic Profile; SPEC'M 06/22/16 21:29 Test: GLUCOSE, FASTING; Value: 76; Range: 80-110; Abnormal: Below low normal; Units: MG/DL; Status: F Test: BLOOD UREA NITROGEN; Value: 18; Range: 7-18; Units: MG/DL; Status: F Test: CREATININE FOR GFR; Value: 1.16; Range: 0.70-1.30; Units: MG/DL; Status: F Test: GLOMERULAR FILTRATION RATE; Value: > 60.0; Range: >49; Status: F Test: SODIUM LEVEL; Value: 142; Range: 136-145; Units: MEQ/L; Status: F Test: POTASSIUM SERUM; Value: 3.9; Range: 3.5-5.1; Units: MEQ/L; Status: F Test: CHLORIDE LEVEL; Value: 108; Range: 98-107; Abnormal: Above high normal; Units: MEQ/L; Status: F Test: CARBON DIOXIDE LEVEL; Value: 26; Range: 21-32; Units: MEQ/L; Status: F Test: ANION GAP; Value: 8; Range: 8-16; Units: MEQ/L; Status: F Test: CALCIUM LEVEL; Value: 9.0; Range: 8.8-10.2; Units: MG/DL; Status: F Test Note: ; Units are mL/min/1.73 m2 Chronic Kidney Disease Staging per NKF: Stage I & II GFR >=60 Normal to Mildly Decreased Stage III GFR 30-59 Moderately Decreased Stage IV GFR 15-29 Severely Decreased Stage V GFR <15 Very Little GFR Left ESRD GFR <15 on MANUFACTURER REPRESENTATIVE Lab Order: CBC with Diff; SPEC'M 06/22/16 21:29 Test: WHITE BLOOD COUNT; Value: 6.8; Range: 4.0-10.0; Units: K/mm3; Status: F Test: RED BLOOD COUNT; Value: 5.55; Range: 4.30-6.10; Units: M/mm3; Status: F Test: HEMOGLOBIN; Value: 16.7; Range: 14.0-18.0; Units: g/dl; Status: F Test: HEMATOCRIT; Value: 49.1; Range: 42.0-52.0; Units: %; Status: F Test: MEAN CORPUSCULAR VOLUME; Value: 88.4; Range: 80.0-96.0; Units: fl; Status: F Test: MEAN CORPUSCULAR HEMOGLOBIN; Value: 30.0; Range: 27.0-33.0; Units: pg; Status: F Test: MEAN CORPUSCULAR HGB CONC; Value: 33.9; Range: 32.0-36.5; Units: g/dl; Status: F Test: RED CELL DISTRIBUTION WIDTH; Value: 13.0; Range: 11.5-14.5; Units: %; Status: F Test: PLATELET COUNT, AUTOMATED; Value: 181; Range: 150-450; Units: k/mm3; Status: F Test: NEUTROPHILS %; Value: 54.6; Range: 36.0-66.0; Units: %; Status: F Test: LYMPH %; Value: 33.5; Range: 24.0-44.0; Units: %; Status: F Test: MONO %; Value: 6.3; Range: 0.0-5.0; Abnormal: Above high normal; Units: %; Status: F Test: EOS %; Value: 1.2; Range: 0.0-3.0; Units: %; Status: F Test: BASO %; Value: 0.3; Range: 0.0-1.0; Units: %; Status: F Test: LARGE UNSTAINED CELL %; Value: 4.0; Range: 0.0-4.0; Units: %; Status: F Test: NEUTROPHILS #; Value: 3.7; Range: 1.8-7.7; Units: K/mm3; Status: F Test: LYMPH #; Value: 2.3; Range: 1.5-4.5; Units: K/mm3; Status: F Test: MONO #; Value: 0.4; Range: 0.0-0.8; Units: K/mm3; Status: F Test: EOS #; Value: 0.1; Range: 0.0-0.50; Units: K/mm3; Status: F Test: BASO #; Value: 0.0; Range: 0.0-0.2; Units: K/mm3; Status: F Test: LARGE UNSTAINED CELL #; Value: 0.3; Range: 0.0-0.4; Units: K/mm3; Status: F Lab Order: Partial Thromboplastin Time; [facility] 06/22/16 21:29 Test: PARTIAL THROMBOPLASTIN TIME; Value: 26.6; Range: 26.6-37.1; Units: SECONDS; Status: F Lab Order: Prothrombin Time Profile\E\INR; [facility] 06/22/16 21:29 Test: PROTHROMBIN TIME; Value: 13.8; Range: 12.3-14.5; Units: SECONDS; Status: F Test: INR; Value: 1.05; Status: F Test Note: ; THERAPUTIC HUMAN INR VALUES INDICATIONS NORMAL RANGES PROPHYLAXIS/TREATMENT OF: VENOUS THROMBOSIS 2.0-3.0 PULMONARY EMBOLISM 2.0-3.0 PREVENTION OF SYSTEMIC EMBOLISM FROM: TISSUE HEART VALVES 2.0-3.0 ACUTE MYOCARDIAL INFARCTION 2.0-3.0 VALVULAR HEART DISEASE 2.0-3.0 ATRIAL FIBRILLATION 2.0-3.0 MECHANICAL VALVES(HIGH RISK) 2.5-3.5 RECURRENT MYOCARDIAL INFARCTION 2.5-3.5 Lab Order: Type & Screen; [facility] 06/22/16 21:29 Test: BLOOD TYPE; Value: A POS; Status: F Test: AB SCREEN (INDIRECT RACHELLE)GEL; Value: NEGATIVE; Status: F Lab Order: Fingerstick Blood Sugar; [facility]BECCA[facility] 06/22/16 21:18 Test: BEDSIDE GLUCOSE; Value: 71; Range: 80-115; Abnormal: Below low normal; Units: MG/DL; Status: F Radiology Order: CT Head Without Contrast Test: CT Head Without Contrast REASON FOR EXAMINATION: CVA <4.5hrs; ; CLINICAL HISTORY: CVA; TECHNIQUE: Multiple axial CT images were obtained through the brain without IV contrast material.; COMMENTS:; There is normal configuration of sella turcica. There are no intra or extra-axial collections. There; is no mass effect or midline shift. There is no evidence of hematoma formation. No hydrocephalus is p; resent. The ventricles are symmetrical. No abnormal calcifications are present.; There is diffuse age-appropriate cerebellar and cerebral atrophy with proportionally dilated ventricl; es and cortical sulci.; There is a wedge-shaped hypodense area noted in the right parietal lobe compatible with ischemic stro; ke, probably subacute. Correlation with MRI with diffusion is recommended.; There are bilateral periventricular and subcortical white matter hypolucencies compatible with mild c; hronic microvascular disease.; IMPRESSION:; 1. Age-appropriate cerebellar and cerebral atrophy.; 2. Mild chronic microvascular disease.; 3. Wedge-shaped hypodense area noted in the right parietal lobe compatible with ischemic stroke, prob; ably subacute. Correlation with MRI with diffusion is recommended.; Thank you for your kind referral of this patient.; ; ; Radiology Order: Chest, 1 View Test: Chest, 1 View REASON FOR EXAMINATION: CVA <4.5hrs; Portable chest x-ray: Single view.; ; History: CVA less than 4.5 hours.; ; Findings: The lungs are well inflated and clear. Pleural angles are sharp.; Heart size is normal. Pulmonary vasculature is not increased. No significant; bony abnormality is seen.; ; Impression:; ; No active disease.; ; ; Signed by; Ronni James MD 06/23/2016 10:23 A; Radiology Order: ELECTROCARDIOGRAM ADULT Test: ELECTROCARDIOGRAM ADULT REASON FOR EXAMINATION: CVA <4.5hrs; Stationary ECG Study; [facility] - ED; ; Test Date: 2016-06-22; Pat Name: TA PIRES Department:; Room: -; Gender: M Boat Driver: LEONARD; : 1955 Requested By: Destin Iqbal; Order Number: [id number] Reading MD: Destin Sullivan; Measurements; Intervals Gail; Rate: 99 P:; FL: 0 QRS: 32; QRSD: 96 T: 48; QT: 356; QTc: 459; Interpretive Statements; SINUS TACHYCARDIA WITH 1ST DEGREE AV BLOCK; NSTTW ABNORMALITIES; NO PRIORS; Electronically Signed On 06-22-2016 23:08:43 EST by Destin Sullivan; Outcome: 21:43 CT Study completed. [facility] 22:30 ER care complete, transfer ordered by Provider. pc 22:32 Admission hand-off: Report called to Carly Raya RN. [facility] 23:32 Discharge Assessment: Patient awake, alert and oriented x 3. No cognitive and/or mlc functional deficits noted. Patient verbalized understanding of disposition instructions. patient administered narcotics - no. The following High Risk Discharge criteria are identified: None. Transferred to [facility]. by EMS ground [facility] ambulance report to accompanying personnel Beena Stephen, iron and steel work supervisor and Hyacinth Fonseca, EMT. Condition: good Condition: stable. Property :Personal belongings accompany Pt. 23:35 Patient left the ED. [facility] Signatures: Dispatcher [employer] Destin Dunn MD MD pc Raiza Araan, Reg Reg Henry Crowe, Quality Control Inspector Heading Unit ml3 Kamran Knapp, STRATEGIC COMMUNICATIONS SPECIALIST STRATEGIC COMMUNICATIONS SPECIALIST kb5 Laura Cage LPN LPN cp1 Malathi Aguirre,SNOW RN Janine Blunt Chart Complete MTDD
--- NOTE | 2016-06-25 12:03 | EDDOCDS ---
Physician Documentation [facility] Name: Ta Pressley Age: 60 yrs Sex: Male : 1955 Arrival Date: 06/22/2016 Time: 20:52 Bed 11 Private MD: Sal Dueñas Disposition: 06/22 22:17 Critical Care: Critical care not applicable. pc Disposition: 06/22/16 22:30 Transfer ordered to [facility]. Diagnosis are Cerebral infarction, Nicotine dependence. - Reason for transfer: Higher level of care. - Accepting physician is Dr. Hunt. - Condition is Stable. - Problem is new. - Symptoms are unchanged. HPI: 21:15 This 60 yrs old Male presents to ER via Ambulance with complaints of S/S of pc Possible Stroke. 21:15 The history is obtained from the patient. The patient presents to the emergency pc department with weakness of the left upper extremity, left lower extremity. Onset: The symptoms/episode began/occurred suddenly, at 18:00, and improved 30 minutes ago, He was sitting on his couch watching TV when his left arm "stopped working, like when I had that stroke in December". He was unable to move his arm to put on his coat. He felt "wobbly" when he was trying to alk, with his left leg feeling weak. He had a mild headache, pointing to his right temporal area, which has since resolved. He called EMS after 2-3 hours, "just to get checked out". He arrives stating his left arm is now back to normal and his leg feels "almost normal". He had a CVA in December of last year [facility] in [place], when he had these same symptoms but they did not resolve until he was seen at the hospital. He is not sure if he received thrombolytics. He is compliant with his meds but continues to smoke 1ppd.. Historical: - Allergies: No known drug Allergies; - Home Meds: 1. aspirin 325 mg Oral tab once daily (Last dose: 06/22/2016 08:00) 2. atorvastatin 40 mg oral tab once daily (Last dose: 06/22/2016 19:00) 3. fluoxetine 40 mg Oral cap once daily (Last dose: 06/22/2016 19:00) 4. ibuprofen 600 mg Oral tab 1 tab every 6 hours (Last dose: 06/22/2016 17:00) - PMHx: CVA; Hypercholesterolemia; Depression; - PSHx: Hernia repair; finger surgery; - The history from nurses notes was reviewed: but there are no nursing notes, or only partial notes available at the time of my charting. - Social history: Smoking status: Patient uses tobacco products, light tobacco smoker. No barriers to communication noted, The patient speaks fluent Bulgarian. - : The pt / caregiver states he / she is not on anticoagulants. Home medication list is obtained from the patient. - Hospitalizations: : No recent hospitalization is reported. - Exposure Risk Screening:: None identified. - Immunization history:: All immunizations up-to-date. - Family history: Not pertinent. - Social history:: the patient smokes cigarettes 1ppd the patient drinks alcohol. ROS: 21:15 All systems are negative except as listed. pc Exam: 21:15 General Appearance: no acute distress, alert. pc 21:15 EENT: normal eye inspection, ears, nose and throat normal, pharynx normal, mucous membranes moist no apparent trauma. 21:15 Neck: The exam reveals no acute abnormalities. ROM is normal and painless. No nuchal rigidity is noted.. 21:15 Respiratory: no respiratory distress, normal breath sounds, chest non-tender. 21:15 CVS: regular pulse rate, regular rhythm, normal S1 and S2, no murmurs, strong peripheral pulses, normal capillary refill. 21:15 Abdomen: soft, non-tender, no organomegaly, normal bowel sounds. 21:15 Back: normal inspection. 21:15 Skin: skin color is normal, warm, dry. 21:15 Extremities: The extremities have a grossly normal appearance, are non-tender, without acute ROM abnormalities, no pedal edema. 21:15 Neuro: oriented x 3, cranial nerves normal as tested, 4/5 strength in LLE with drift at 5 seconds. NIHSS of 1. 21:15 Neuro: no sensory deficits, Cerebellar function: normal finger to nose testing, Romberg testing is negative. 21:15 Psych: normal mood. Vital Signs: 21:08 BP 155 / 98; Pulse 98; Resp 18; Temp 97.1(O); Pulse Ox 97% on R/A; Weight 71.21 kg / mlc 156.99 lbs (R); Height 5 ft. 6 in. (167.64 cm); Pain 0/10; 21:26 BP 130 / 89 (auto/); mlc 21:27 Pulse 100 MON; mlc 21:39 Weight 73.48 kg / 162 lbs (M); Height 5 ft. 6 in. (167.64 cm); kb5 21:41 BP 122 / 85 (auto/); mlc 21:42 Pulse 100 MON; Pulse Ox 93% ; mlc 21:54 BP 120 / 85 (auto/); mlc 21:55 Pulse 98 MON; Pulse Ox 81% ; mlc 22:09 BP 119 / 84 (auto/); mlc 22:09 Pulse 98 MON; Pulse Ox 96% ; mlc 22:24 BP 133 / 91 (auto/); mlc 22:28 Pulse 102 MON; mlc 22:39 BP 139 / 94 (auto/); mlc 22:40 Pulse 100 MON; Pulse Ox 97% ; mlc 22:54 BP 123 / 84 (auto/); mlc 22:55 Pulse 100 MON; mlc 23:09 BP 125 / 85 (auto/); mlc 23:12 Pulse 102 MON; Pulse Ox 96% ; mlc 23:24 BP 121 / 84 (auto/); mlc 23:25 Pulse 102 MON; Pulse Ox 96% ; mlc 23:32 BP 127 / 87; Pulse 103; Resp 18; Temp 97.7; Pulse Ox 96% on R/A; Pain 0/10; mlc 21:39 Body Mass Index 26.15 (73.48 kg, 167.64 cm) kb5 MDM: 21:09 Consult [facility]: Telemedicine Stroke Attending ordered. pc 21:09 RN interventions must not delay CT ordered. pc 21:09 Manager Of Marketing/Pulse Ox/q 15 min VS ordered. pc 21:09 Accucheck ordered. pc 21:09 IV Saline Lock ordered. pc 21:09 Neuro VS q 15 Minutes ordered. pc 21:09 Patient must be on [facility] stretcher and weighed via bed scale ordered. pc 21:09 Rhythm Strip to chart ordered. pc 21:10 Basic Metabolic Profile Ordered. EDMS 21:10 CBC with Diff Ordered. EDMS 21:10 Partial Thromboplastin Time Ordered. EDMS 21:10 Prothrombin Time Profile\\E\\INR Ordered. EDMS 21:10 Type & Screen Ordered. EDMS 21:10 CT Head Without Contrast Ordered. EDMS 21:11 Chest, 1 View Ordered. EDMS 21:11 ECG WITH READING ER PHYS+CARDIAG ordered. EDMS 21:15 Differential Diagnosis: CVA with NIHSS of 1, presenting with resolving symptoms at 3+ pc hours after onset. Plan: CT, d/w Neurology. 21:33 Test interpretation: EKG. pc 21:35 Fingerstick Blood Sugar Ordered. EDMS 21:54 Financial registration complete. gjb 21:59 Basic Metabolic Profile Reviewed. pc 21:59 CBC with Diff Reviewed. pc 21:59 Fingerstick Blood Sugar Reviewed. pc 21:59 Partial Thromboplastin Time Reviewed. pc 22:08 [facility] Payment Agreement was scanned into [employer] and attached to record. gjb 22:17 Data reviewed: old medical records, vital signs, nurses notes, EKG(s), lab test pc results, all radiology studies and available results. Test interpretation: LAB - all labs as ordered have been reviewed, interpreted and considered in the overall management of the clinical presentation; X-RAY - interpreted by me, 1 view chest chronic obstructive pulmonary disease pattern, interpreted by Radiologist and personally reviewed, discussed with Radiologist, Head CT; old right parietal CVA, else nad. The patient has been re-examined and re-evaluated. There is no appreciated change of the patient's symptoms at this time. Physician consultation: Dr. Guerra regarding patient's condition, and he, the telemedicine Stroke attending at [facility], advises that at [id number], he is out side of the window for IV tPA but that he should be transferred to [facility] Stroke attending.. 22:17 Physician consultation: Dr. Hunt was contacted at 22:19, regarding patient's pc condition, and she accepts in transfer to [facility]. Disposition: The historical points, examination findings, and any diagnostic results supporting the provided diagnosis, were discussed with the patient or legal guardian. The decision to transfer to the patient to another facility was explained. 22:35 Partial Thromboplastin Time Reviewed. pc 22:35 Prothrombin Time Profile\\E\\INR Reviewed. pc 22:35 Type & Screen Reviewed. pc 22:35 CT Head Without Contrast Reviewed. pc 23:08 Consult [facility] Transfer Center: Telemedicine Stroke Attending complete. jun 16 11:17 ECG/EKG was scanned into [employer] and attached to record. gb 11:17 Trend VS was scanned into [employer] and attached to record. gb 11:17 Radiology Report was scanned into [employer] and attached to record. 11:18 Other: STROKE SCALE was scanned into [employer] and attached to record. EC/07 21:33 Rate is 99 beats/min. Rhythm is regular, Normal Sinus Rhythm with 1st degree heart pc block. QRS [place] is Normal. OK interval is prolonged. QRS interval is normal. QT interval is normal. No Q waves. T waves are Normal. No ST changes noted. Clinical impression: Normal Sinus Rhythm and 1st degree heart block. Point of Care Testing: Blood Glucose: 21:27 Blood Glucose: 71 mg/dL; [facility] [place]: Signatures: Dispatcher [employer] EDMS Destin Sullivan MD MD pc Newman, Jill New, RN RN jan Barnhardt, Gloria, Reg Reg gb Booth, Mandy, RN RN mlc Beck, Gabriela gjb The chart was reviewed and I authenticate all verbal orders and agree with the evaluation and treatment provided.Corrections: (The following items were deleted from the chart) 22:17 21:15 Onset: The symptoms/episode began/occurred suddenly, at 18:00, and improved 30 pc minutes ago, He was sitting on his couch watching TV when his left arm "stopped working, like when I had that stroke in December". He was unable to move his arm to put on his coat. He felt "wobbly" when he was trying to alk, with his left leg feeling weak. He had a mild headache, pointing to his right temporal area, which has since resolved. He called EMS after 2-3 hours, "just to get checked out". He arrives stating his left arm is now back to normal and his leg feels "almost normal". He had a CVA in December of last year [facility] in [place], when he had these same symptoms but they did not resolve until he was seen at the hospital. He is not sure if he received thrombolytics. He is compliant with his meds but continues to smoke 1ppd., pc Attachments: 22:08 [facility] Payment Agreement gjb 06/23 11:17 ECG/EKG Chart Complete MTDD
== END 2016-06-22 23:35 | disposition short-term general hospital (02) ==
LOC: M ED 20:52
DX: I63.9 Cerebral infarction, unspecified (principal); F17.210 Nicotine dependence, cigarettes, uncomplicated; I44.0 Atrioventricular block, first degree; E78.00 Pure hypercholesterolemia, unspecified; F32.9 Major depressive disorder, single episode, unspecified; Z79.899 Other long term (current) drug therapy; Z79.82 Long term (current) use of aspirin; Z86.73 Personal history of transient ischemic attack (TIA), and cerebral infarction without residual deficits

== ENCOUNTER 2016-08-14 09:26 | Emergency (ER) | payer OTHER, SELFPAY ==
[~2016-08-14] VITALS: Ht 177.8 cm; Wt 69.9 kg
[2016-08-14 09:50] VITALS: BP 153/88
[2016-08-14] MEDS ORDERED: DIVA500T3 (09:59)
[2016-08-14] MEDS ORDERED: HALO10AM (09:59)
[2016-08-14] MEDS ORDERED: TRAZ100T4 PO (09:59)
[2016-08-14] MEDS ORDERED: NAPR500T PO (10:32)
[2016-08-14] MEDS ORDERED: NAPROXEN 250 MG TAB PO ONE (10:45)
== END 2016-08-14 10:57 | disposition home or self-care (01) ==
LOC: M ED 10:35
DX: S40.012A Contusion of left shoulder, initial encounter (principal); V03.10XA Pedestrian on foot injured in collision with car, pick-up truck or van in traffic accident, initial encounter; Y92.410 Unspecified street and highway as the place of occurrence of the external cause; Y93.89 Activity, other specified; Y99.8 Other external cause status; Z79.899 Other long term (current) drug therapy; F17.210 Nicotine dependence, cigarettes, uncomplicated

== ENCOUNTER 2016-10-14 13:28 | Inpatient (IN) | payer OTHER, SELFPAY ==
[~2016-10-14] VITALS: Ht 177.8 cm; Wt 69.9 kg
[~2016-10-14 13:28] MED LIST: DIVA500T3; HALO10AM; NAPR500T PO; TRAZ100T4 PO
[2016-10-14] MEDS ORDERED: CEFT500T3 (13:43)
[2016-10-14] MEDS ORDERED: ATOR1TAB19 (13:43)
[2016-10-14] MEDS ORDERED: BENZ200C44 (13:43)
[2016-10-14] MEDS ORDERED: BENZ1TA (13:43)
[2016-10-14] MEDS ORDERED: QUET1TAB8 (13:43)
[2016-10-14 14:40] LABS: METHADONE URINE NEGATIVE (NEGATIVE)
[2016-10-14 14:41] LABS: ALBUMIN 3.8 GM/DL (3.2-5.2); ALBUMIN/GLOBULIN RATIO 1.09 (1.00-1.93); ALKALINE PHOSPHATASE 57 U/L (45-117); ALT/SGPT 19 U/L (12-78); ANION GAP 7 MEQ/L (8-16); AST/SGOT 21 U/L (15-37); BILIRUBIN,DIRECT 0.3 MG/DL (0.0-0.2); BILIRUBIN,TOTAL 0.7 MG/DL (0.2-1.0); BLOOD UREA NITROGEN 12 MG/DL (7-18); CALCIUM LEVEL 9.2 MG/DL (8.5-10.1); CARBON DIOXIDE LEVEL 28 MEQ/L (21-32); CHLORIDE LEVEL 102 MEQ/L (98-107); CREATININE FOR GFR 0.74 MG/DL (0.70-1.30); GLOMERULAR FILTRATION RATE > 60.0 (>56); GLUCOSE, FASTING 84 MG/DL (70-105); SODIUM LEVEL 137 MEQ/L (136-145); TOTAL PROTEIN 7.3 GM/DL (6.4-8.2)
[2016-10-14 14:53] LABS: MEAN CORPUSCULAR HEMOGLOBIN 32.5 pg (27.0-33.0); MEAN CORPUSCULAR VOLUME 92.9 fl (80.0-96.0); RED CELL DISTRIBUTION WIDTH 12.3 % (11.5-14.5); WHITE BLOOD COUNT 7.3 K/mm3 (4.0-10.0)
[2016-10-14] MEDS ORDERED: ATOR1TAB19 PO (18:14)
[2016-10-14] MEDS ORDERED: BENZ200C44 PO (18:14)
[2016-10-14] MEDS ORDERED: BENZ1TA PO (18:14)
[2016-10-14] MEDS ORDERED: CEFT500T3 PO (18:14)
[2016-10-14] MEDS ORDERED: DIVA500T3 PO (18:17)
[2016-10-14] MEDS ORDERED: HALD100I2 IM (18:17)
[2016-10-14] MEDS ORDERED: QUET1TAB8 PO (18:17)
[2016-10-14] MEDS ORDERED: TRAZ10TA PO (18:17)
[2016-10-14] MEDS ORDERED: MOM 30ML SUSPENSION UDC PO PRN (18:45)
[2016-10-14] MEDS ORDERED: BENZONATATE 100 MG CAP PO PRN (18:45)
[2016-10-14] MEDS ORDERED: MAALOX 30 ML SUSP *UDC PO PRN (18:45)
[2016-10-14] MEDS ORDERED: VALPROIC ACID 250 MG CAP PO SCH (21:00)
[2016-10-14] MEDS: QUEtiapine FUMARATE 100 MG TAB PO SCH (22:40)
[2016-10-14] MEDS: DIVALPROEX 500 MG TAB PO SCH (22:41)
[2016-10-14] MEDS: BENZTROPINE 2 MG TAB PO SCH (22:41)
[2016-10-14] MEDS: traZODone 100 MG TAB PO SCH (22:42)
[2016-10-14] MEDS: ATORVASTATIN 10 MG TAB PO SCH (22:42)
[2016-10-14] MEDS: CEFUROXIME 500 MG TAB PO SCH (22:53)
[2016-10-15 06:15] VITALS: BP 130/66
[2016-10-15] MEDS: DIVALPROEX 500 MG TAB PO SCH ×2 (08:40→20:24)
[2016-10-15] MEDS: BENZTROPINE 2 MG TAB PO SCH ×2 (08:40→20:24)
[2016-10-15] MEDS: CEFUROXIME 500 MG TAB PO SCH ×2 (08:40→20:24)
[2016-10-15] MEDS: NICOTINE 21MG/24HR 1 EA TRANSDERMAL TD SCH (11:30)
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
[2016-10-15] MEDS: ACETAMINOPHEN TAB 650MG DOSE (2X325MG) PO PRN ×2 (15:16→21:23)
[2016-10-15 18:00] VITALS: BP 111/60
[2016-10-15] MEDS: ATORVASTATIN 10 MG TAB PO SCH (20:24)
[2016-10-15] MEDS: QUEtiapine FUMARATE 100 MG TAB PO SCH (20:24)
[2016-10-15] MEDS: traZODone 100 MG TAB PO SCH (20:24)
[2016-10-15] MEDS: BACITRACIN OINT 30GM TOP SCH (22:27)
--- NOTE | 2016-10-15 23:08 | HPE ---
DATE OF ADMISSION: 10/14/2016 HISTORY OF PRESENT ILLNESS: Please refer to the psychiatric history and evaluation for further details on this admission. This examination and history is intended for medical issues which may need treatment, followup or consultation on this 51-year-old male. PRIMARY CARE PROVIDER: The patient states he does not have one currently. ALLERGIES: No known allergies. SOCIAL HISTORY: Single. ETOH - weekends he drinks beer. Smokes - 1 pack of cigarettes per day. Recreational drug use - marijuana. PAST MEDICAL HISTORY: Most recently he had ischemic stroke in June. He was transferred to [place] for treatment. History of hypertension, history of hypercholesterolemia. PAST SURGICAL HISTORY: Right knee surgery. HOME MEDICATIONS: - atorvastatin 10 mg by mouth at bedtime - Benztropine 2 mg by mouth twice a day - Depakote 500 mg by mouth twice a day - Haldol IM 2 mg IM every month - Seroquel 100 mg by mouth at bedtime - trazodone 100 mg by mouth at bedtime - Ceftin 500 mg by mouth twice a day - Benzonatate 200 mg 1 capsule three times a day as needed for cough LABORATORY STUDIES: CBC was normal. Electrolytes were normal. BUN was 12, creatinine 0.74. Urine was positive for cannabinoids. Valproic acid was 71.8. Ten system review was done. He had no complaint of headache. No blurred or double vision. No fever. No chills. No tendinitis. No hoarseness. No difficulty swallowing. No lightheadedness. No vertigo. Respiratory: States he had had a cough, but it was much better. No sputum production. No hemoptysis, orthopnea, no wheeze. GI: No nausea, vomiting, or diarrhea. No hematochezia, no melena. No complaints of abdominal pain. : No hematuria, dysuria or frequency. Musculoskeletal: No joint redness or swelling. Endocrine: No polyuria, polydipsia or polyphagia. Hematological: No history of anemia. Neurological: No seizures. No paresthesia, paralysis. Psychological: See psychiatric HPI. PHYSICAL EXAMINATION: 51-year-old cooperative male, no acute distress. Height 70 inches, weight 66.3 kg. Body mass index (BMI) 21. The patient alert and oriented times three. Pupils equal and reactive to light. Extraocular movements intact. Cornea and sclera clear. Conjunctiva normal. No facial asymmetry. Pharynx, tongue, and gums pink and moist. Tongue is midline. Neck is supple, without lymphadenopathy. No thyromegaly. No goiter. Chest has coarse breath sounds. A few rhonchi. Clear with cough. No wheeze or retraction. Heart is regular. Abdomen benign. Bowel sounds positive. /Rectal: Not done. Extremities: No cyanosis and clubbing or edema. Right thumb has a slightly open sore on it. No drainage. Hand grasp equal. Peripheral pulses equal and palpable bilaterally. Skin is warm and dry. IMPRESSION AND PLAN: 1. Sore on the right thumb. Will order bacitracin ointment twice a day. 2. Upper respiratory infection (URI). Continue treatment as started prior to admission. Ceftin and as needed benzonatate. Tessalon Perles as needed for cough. 3. History of hypertension. Stable. 4. History of hypercholesterolemia. Continue atorvastatin. 5. The patient will need to be set up with primary care provider for an outpatient appointment and followup. He previously had Dr. Hall who has left the area. 6. Smoking cessation. Nicotine patch was offered.
[2016-10-16 06:25] VITALS: BP 126/86
[2016-10-16] MEDS: DIVALPROEX 500 MG TAB PO SCH ×2 (08:11→20:06)
[2016-10-16] MEDS: NICOTINE 21MG/24HR 1 EA TRANSDERMAL TD SCH (08:11)
[2016-10-16] MEDS: BENZTROPINE 2 MG TAB PO SCH ×2 (08:11→20:06)
[2016-10-16] MEDS: CEFUROXIME 500 MG TAB PO SCH ×2 (08:11→20:06)
[2016-10-16] MEDS: BACITRACIN OINT 30GM TOP SCH ×2 (08:12→20:05)
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
[2016-10-16 18:00] VITALS: BP 123/88
[2016-10-16] MEDS: traZODone 100 MG TAB PO SCH (20:06)
[2016-10-16] MEDS: ATORVASTATIN 10 MG TAB PO SCH (20:06)
[2016-10-16] MEDS: QUEtiapine FUMARATE 100 MG TAB PO SCH (20:06)
[2016-10-17] MEDS: BACITRACIN OINT 30GM TOP SCH ×2 (06:34→20:51)
[2016-10-17 06:37] VITALS: BP 126/63
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
[2016-10-17] MEDS: CEFUROXIME 500 MG TAB PO SCH ×2 (09:45→20:49)
[2016-10-17] MEDS: BENZTROPINE 2 MG TAB PO SCH ×2 (09:45→20:49)
[2016-10-17] MEDS: DIVALPROEX 500 MG TAB PO SCH ×2 (09:45→20:50)
[2016-10-17] MEDS: NICOTINE 21MG/24HR 1 EA TRANSDERMAL TD SCH (09:45)
[2016-10-17] MEDS: ACETAMINOPHEN TAB 650MG DOSE (2X325MG) PO PRN (14:20)
[2016-10-17 18:00] VITALS: BP 136/71
--- NOTE | 2016-10-17 18:40 | ECGEPIP ---
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
[2016-10-17] MEDS: QUEtiapine FUMARATE 100 MG TAB PO SCH (20:49)
[2016-10-17] MEDS: ATORVASTATIN 10 MG TAB PO SCH (20:49)
[2016-10-17] MEDS: traZODone 100 MG TAB PO SCH (20:49)
[2016-10-18 06:37] VITALS: BP 113/72
[2016-10-18 06:48] LABS: MEAN CORPUSCULAR HEMOGLOBIN 32.8 pg (27.0-33.0); MEAN CORPUSCULAR HGB CONC 33.8 g/dl (32.0-36.5); MEAN CORPUSCULAR VOLUME 96.9 fl (80.0-96.0); RED CELL DISTRIBUTION WIDTH 12.2 % (11.5-14.5); WHITE BLOOD COUNT 6.1 K/mm3 (4.0-10.0)
[2016-10-18 07:11] LABS: ALBUMIN 3.3 GM/DL (3.2-5.2); ALKALINE PHOSPHATASE 41 U/L (45-117); ALT/SGPT 19 U/L (12-78); ANION GAP 8 MEQ/L (8-16); AST/SGOT 15 U/L (15-37); BILIRUBIN,TOTAL 0.4 MG/DL (0.2-1.0); BLOOD UREA NITROGEN 14 MG/DL (7-18); CALCIUM LEVEL 8.7 MG/DL (8.5-10.1); CARBON DIOXIDE LEVEL 28 MEQ/L (21-32); CHLORIDE LEVEL 104 MEQ/L (98-107); CREATININE FOR GFR 0.77 MG/DL (0.70-1.30); GLOMERULAR FILTRATION RATE > 60.0 (>56); GLUCOSE, FASTING 98 MG/DL (70-105); POTASSIUM SERUM 4.3 MEQ/L (3.5-5.1); SODIUM LEVEL 140 MEQ/L (136-145); TOTAL PROTEIN 6.6 GM/DL (6.4-8.2)
[2016-10-18] MEDS: NICOTINE 21MG/24HR 1 EA TRANSDERMAL TD SCH (08:29)
[2016-10-18] MEDS: BENZTROPINE 2 MG TAB PO SCH (08:29)
[2016-10-18] MEDS: CEFUROXIME 500 MG TAB PO SCH (08:29)
[2016-10-18] MEDS: DIVALPROEX 500 MG TAB PO SCH (08:29)
[2016-10-18] MEDS: BACITRACIN OINT 30GM TOP SCH (08:31)
[2016-10-18] MEDS ORDERED: QUET1TAB8 PO (14:38)
[2016-10-18] MEDS ORDERED: BENZ2TA PO (14:38)
[2016-10-18] MEDS ORDERED: TRAZ10TA PO (14:38)
[2016-10-18] MEDS ORDERED: DEPA1TAB3 PO (14:38)
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
== END 2016-10-18 15:45 | disposition home or self-care (01) | DRG 750 ==
LOC: M ED 15:44 → M ED INP 18:22 → M PSY 20:20
PROVIDERS: ADMIT Psychiatry & Neurology Child & Adolescent Psychiatry; ATTEND Psychiatry & Neurology Psychiatry
DX: F20.0 Paranoid schizophrenia (principal); I10 Essential (primary) hypertension; Z79.899 Other long term (current) drug therapy; F17.210 Nicotine dependence, cigarettes, uncomplicated; E78.00 Pure hypercholesterolemia, unspecified; J06.9 Acute upper respiratory infection, unspecified

== ENCOUNTER → 2019-01-12 | Outpatient (CLI) | payer OTHER ==
[~2019-01-12] MED LIST changes: +ATOR1TAB19; +ATOR1TAB19 PO; +BENZ-52; +BENZ-52 PO; +BENZ200C70; +BENZ200C70 PO; +BENZ2TAB5 PO; +CEFT500T3; +CEFT500T3 PO; +DEPA1TAB3 PO; -DIVA500T3; +DIVA500T94; +DIVA500T94 PO; +HALD100I2 IM; +NAPR-837 PO; -NAPR500T PO; +QUET1TAB8; +QUET1TAB8 PO; +TRAZ-163 PO; -TRAZ100T4 PO; +TRAZ10TA PO
== END ==
LOC: M LAB 08:48
PROVIDERS: ATTEND Psychiatry & Neurology Addiction Medicine
DX: F10.920 Alcohol use, unspecified with intoxication, uncomplicated (principal)

== ENCOUNTER 2019-01-25 17:07 | Emergency (ER) | payer OTHER ==
[~2019-01-25] VITALS: Ht 190.5 cm; Wt 85.9 kg
[2019-01-25 18:18] LABS: BASO % 0.5 % (0.0-1.0); EOS # 0.1 10^3/uL (0.0-0.50); EOS % 1.1 % (0.0-3.0); HEMATOCRIT 37.6 % (42.0-52.0); HEMOGLOBIN 13.2 g/dl (13.5-17.5); LYMPH # 0.9 10^3/uL (1.5-4.5); LYMPH % 14.4 % (24.0-44.0); MEAN CORPUSCULAR HEMOGLOBIN 30.6 pg (27.0-33.0); MEAN CORPUSCULAR HGB CONC 35.1 g/dl (32.0-36.5); MEAN CORPUSCULAR VOLUME 87.2 fl (80.0-96.0); MONO # 0.6 10^3/uL (0.0-0.8); MONO % 9.5 % (0.0-5.0); NEUTROPHILS # 4.6 10^3/uL (1.8-7.7); PLATELET COUNT, AUTOMATED 130 10^3/uL (150-450); RED BLOOD COUNT 4.31 10^6/uL (4.30-6.10); WHITE BLOOD COUNT 6.2 10^3/uL (4.0-10.0)
[2019-01-25 18:46] LABS: ACETAMINOPHEN LEVEL < 2.0 UG/ML (10.0-30.0); ALBUMIN 3.6 GM/DL (3.2-5.2); ALT/SGPT 19 U/L (12-78); BILIRUBIN,DIRECT < 0.1 MG/DL (0.0-0.2); BILIRUBIN,TOTAL 0.2 MG/DL (0.2-1.0); BLOOD UREA NITROGEN 16 MG/DL (7-18); CALCIUM LEVEL 8.7 MG/DL (8.5-10.1); CARBON DIOXIDE LEVEL 24 MEQ/L (21-32); CHLORIDE LEVEL 108 MEQ/L (98-107); CPK CREATINE PHOSPHOKINASE 84 U/L (39-308); CREATININE FOR GFR 0.82 MG/DL (0.70-1.30); ETHYL ALCOHOL (ETHANOL) 0.261 % (0.000-0.010); GLOMERULAR FILTRATION RATE > 60.0 (>56); GLUCOSE, FASTING 98 MG/DL (70-100); POTASSIUM SERUM 3.9 MEQ/L (3.5-5.1); SODIUM LEVEL 140 MEQ/L (136-145); TOTAL PROTEIN 6.4 GM/DL (6.4-8.2)
[2019-01-25 19:08] LABS: AMPHETAMINES LEVEL URINE NEGATIVE (NEGATIVE); BARBITURATES URINE NEGATIVE (NEGATIVE); BENZODIAZEPINES URINE NEGATIVE (NEGATIVE); CANNABINOIDS URINE NEGATIVE (NEGATIVE); COCAINE METABOLITE URINE NEGATIVE (NEGATIVE); METHADONE URINE NEGATIVE (NEGATIVE); OPIATES URINE NEGATIVE (NEGATIVE); PHENCYCLIDINE URINE NEGATIVE (NEGATIVE)
[2019-01-25 19:54] LABS: VALPROIC ACID (DEPAKOTE) 70.6 UG/ML (50.0-100.0)
--- NOTE | 2019-01-25 20:55 | ECGEPIP ---
[facility] - ED Test Date: 2019-01-25 Pat Name: LAMAR PIRES Department: Room: - Gender: Male Nematologist: MEGAN : 1965-10-02 Requested By: Destin Iqbal Order Number: [id number] Reading MD: Destin Sullivan Measurements Intervals [place] Rate: 69 P: 44 AK: 167 QRS: 30 QRSD: 91 T: 48 QT: 395 QTc: 425 Interpretive Statements SINUS RHYTHM POSSIBLE LEFT ATRIAL ENLARGEMENT NSTTW ABNORMALITIES SIMILAR TO 10/16/16 Electronically Signed on 01-25-2019 20:54:51 EDT by Destin Sullivan
[2019-01-26 01:05] VITALS: BP 132/65
== END 2019-01-26 01:10 | disposition home or self-care (01) ==
LOC: M ED 17:07
DX: F10.129 Alcohol abuse with intoxication, unspecified (principal); F11.10 Opioid abuse, uncomplicated; F19.10 Other psychoactive substance abuse, uncomplicated; F20.9 Schizophrenia, unspecified; F25.9 Schizoaffective disorder, unspecified; Z72.0 Tobacco use; F12.10 Cannabis abuse, uncomplicated; Z79.899 Other long term (current) drug therapy
CPT/HCPCS: 80048; 80076; 80164; 80307; 82550; 84443; 85025; 93005; 93041; 94760; 99285; G0480

== ENCOUNTER → 2019-11-10 | Outpatient (CLI) | payer OTHER ==
[~2019-11-10] MED LIST changes: +QUET100T2; +QUET100T2 PO; -QUET1TAB8; -QUET1TAB8 PO; -TRAZ-163 PO; +TRAZ-257 PO; -TRAZ10TA PO; +TRAZ1TAB12 PO
[2019-11-10 12:34] LABS: BASO % 0.6 % (0.0-1.0); EOS # 0.1 10^3/uL (0.0-0.5); EOS % 2.9 % (0.0-3.0); HEMATOCRIT 37.3 % (42.0-52.0); HEMOGLOBIN 13.3 g/dl (13.5-17.5); LYMPH # 0.9 10^3/uL (1.5-5.0); MEAN CORPUSCULAR HEMOGLOBIN 31.7 pg (27.0-33.0); MEAN CORPUSCULAR HGB CONC 35.7 g/dl (32.0-36.5); MONO # 0.4 10^3/uL (0.0-0.8); NEUTROPHILS # 3.4 10^3/uL (1.5-8.5); NEUTROPHILS % 68.9 % (36.0-66.0); PLATELET COUNT, AUTOMATED 163 10^3/uL (150-450); RED BLOOD COUNT 4.19 10^6/uL (4.30-6.10); WHITE BLOOD COUNT 4.9 10^3/uL (4.0-10.0)
[2019-11-10 13:09] LABS: ALBUMIN 3.8 GM/DL (3.2-5.2); ALT/SGPT 21 U/L (12-78); BILIRUBIN,TOTAL 0.4 MG/DL (0.2-1.0); BLOOD UREA NITROGEN 25 MG/DL (7-18); CALCIUM LEVEL 9.1 MG/DL (8.5-10.1); CARBON DIOXIDE LEVEL 26 MEQ/L (21-32); CHLORIDE LEVEL 105 MEQ/L (98-107); CHOLESTEROL LEVEL 155 MG/DL (<200); CHOLESTEROL RISK RATIO 3.229 (<5); CREATININE FOR GFR 0.88 MG/DL (0.70-1.30); FREE T4 0.93 NG/DL (0.76-1.46); GLOMERULAR FILTRATION RATE > 60.0 (>56); GLUCOSE, FASTING 83 MG/DL (70-100); HDL CHOLESTEROL 48 MG/DL (>40); LDL CHOLESTEROL 96 MG/DL (<100); NON-HDL-C 107 MG/DL; POTASSIUM SERUM 4.5 MEQ/L (3.5-5.1); SODIUM LEVEL 138 MEQ/L (136-145); TOTAL PROTEIN 6.7 GM/DL (6.4-8.2); TRIGLYCERIDES LEVEL 56 MG/DL (<150)
== END ==
LOC: M LAB 11:58
PROVIDERS: ATTEND Psychiatry & Neurology Child & Adolescent Psychiatry
DX: F20.9 Schizophrenia, unspecified (principal)

== ENCOUNTER 2020-01-21 15:00 | Inpatient (IN) | payer MEDICAID, OTHER ==
[2020-01-21] MEDS ORDERED: BENZTROPINE 2 MG TAB ONE (22:10)
[2020-01-21] MEDS ORDERED: DIVALPROEX 500 MG TAB As Ordered ONE (22:10)
[2020-01-21] MEDS ORDERED: DIVALPROEX 500 MG TAB ONE (22:10)
[2020-01-21] MEDS ORDERED: BENZTROPINE 2 MG TAB As Ordered ONE (22:10)
[2020-01-21] MEDS ORDERED: traZODone 50 MG TAB ONE (22:10)
[2020-01-21] MEDS ORDERED: traZODone 50 MG TAB As Ordered ONE (22:11)
[2020-01-22] MEDS ORDERED: LORazepam 0.5 MG TAB ONE (01:49)
[2020-01-22] MEDS ORDERED: LORazepam 0.5 MG TAB As Ordered ONE (01:49)
[2020-01-22] MEDS ORDERED: FOLIC ACID 1 MG TAB ONE (07:51)
[2020-01-22] MEDS ORDERED: NALTREXONE 50 MG TAB As Ordered ONE (07:51)
[2020-01-22] MEDS ORDERED: THIAMINE 100 MG TAB ONE (07:51)
[2020-01-22] MEDS ORDERED: NALTREXONE 50 MG TAB ONE (07:51)
[2020-01-22] MEDS ORDERED: THIAMINE 100 MG TAB As Ordered ONE (07:51)
[2020-01-22] MEDS ORDERED: DIVALPROEX 250 MG TAB As Ordered ONE (07:51)
[2020-01-22] MEDS ORDERED: FOLIC ACID 1 MG TAB As Ordered ONE (07:52)
[2020-01-22] MEDS ORDERED: IBUPROFEN 600MG TAB ONE (09:25)
[2020-01-22] MEDS ORDERED: BENZTROPINE 1 MG TAB ONE (09:25)
[2020-01-22] MEDS ORDERED: DIVALPROEX 500 MG TAB ONE ×2 (10:38→20:11)
[2020-01-22] MEDS ORDERED: DIVALPROEX 500 MG TAB As Ordered ONE ×2 (10:38→20:11)
[2020-01-22] MEDS ORDERED: ACETAMINOPHEN TAB 650MG DOSE (2X325MG) ONE (13:18)
[2020-01-22] MEDS ORDERED: ACETAMINOPHEN TAB 650MG DOSE (2X325MG) As Ordered ONE (13:18)
[2020-01-22] MEDS ORDERED: BENZTROPINE 2 MG TAB As Ordered ONE (20:11)
[2020-01-22] MEDS ORDERED: BENZTROPINE 2 MG TAB ONE (20:11)
[2020-01-23] MEDS ORDERED: DIVALPROEX 500 MG TAB ONE ×2 (07:34→21:14)
[2020-01-23] MEDS ORDERED: NALTREXONE 50 MG TAB As Ordered ONE (07:34)
[2020-01-23] MEDS ORDERED: DIVALPROEX 500 MG TAB As Ordered ONE (07:34)
[2020-01-23] MEDS ORDERED: THIAMINE 100 MG TAB As Ordered ONE (07:34)
[2020-01-23] MEDS ORDERED: THIAMINE 100 MG TAB ONE (07:34)
[2020-01-23] MEDS ORDERED: FOLIC ACID 1 MG TAB As Ordered ONE (07:34)
[2020-01-23] MEDS ORDERED: FOLIC ACID 1 MG TAB ONE (07:34)
[2020-01-23] MEDS ORDERED: NALTREXONE 50 MG TAB ONE (07:34)
[2020-01-23] MEDS ORDERED: IBUPROFEN 600MG TAB As Ordered ONE (08:57)
[2020-01-23] MEDS ORDERED: IBUPROFEN 600MG TAB ONE ×2 (08:57→21:14)
[2020-01-23] MEDS ORDERED: BENZTROPINE 2 MG TAB As Ordered ONE (08:57)
[2020-01-23] MEDS ORDERED: BENZTROPINE 2 MG TAB ONE ×2 (08:57→21:14)
[2020-01-23] MEDS ORDERED: zolPIDEM TARTRATE 5 MG TAB ONE (21:14)
[2020-01-24] MEDS ORDERED: NALTREXONE 50 MG TAB ONE (08:16)
[2020-01-24] MEDS ORDERED: IBUPROFEN 600MG TAB ONE (08:16)
[2020-01-24] MEDS ORDERED: BENZTROPINE 2 MG TAB As Ordered ONE (08:16)
[2020-01-24] MEDS ORDERED: FOLIC ACID 1 MG TAB ONE (08:16)
[2020-01-24] MEDS ORDERED: BENZTROPINE 2 MG TAB ONE (08:16)
[2020-01-24] MEDS ORDERED: THIAMINE 100 MG TAB ONE (08:16)
[2020-01-24] MEDS ORDERED: DIVALPROEX 500 MG TAB ONE (08:16)
[2020-01-24] MEDS ORDERED: IBUPROFEN 600MG TAB As Ordered ONE (08:17)
[2020-01-24] MEDS ORDERED: FOLIC ACID 1 MG TAB As Ordered ONE (08:17)
[2020-01-24] MEDS ORDERED: DIVALPROEX 500 MG TAB As Ordered ONE (08:17)
[2020-01-24] MEDS ORDERED: NALTREXONE 50 MG TAB As Ordered ONE (08:17)
[2020-01-24] MEDS ORDERED: THIAMINE 100 MG TAB As Ordered ONE (08:17)
[2020-01-24] MEDS ORDERED: ACETAMINOPHEN TAB 650MG DOSE (2X325MG) As Ordered ONE (10:15)
[2020-01-24] MEDS ORDERED: ACETAMINOPHEN TAB 650MG DOSE (2X325MG) ONE (10:15)
[2020-03-05 16:49] LABS: BASO # 0.1 10^3/uL (0.0-0.2); BASO % 1.2 % (0.0-1.0); EOS # 0.1 10^3/uL (0.0-0.5); EOS % 1.7 % (0.0-3.0); HEMOGLOBIN 14.4 g/dl (13.5-17.5); LYMPH # 0.8 10^3/uL (1.5-5.0); LYMPH % 18.6 % (24.0-44.0); MEAN CORPUSCULAR HEMOGLOBIN 31.8 pg (27.0-33.0); MEAN CORPUSCULAR HGB CONC 35.1 g/dl (32.0-36.5); MEAN CORPUSCULAR VOLUME 90.5 fl (80.0-96.0); MONO # 0.7 10^3/uL (0.0-0.8); MONO % 16.9 % (0.0-5.0); NEUTROPHILS # 2.5 10^3/uL (1.5-8.5); NEUTROPHILS % 58.9 % (36.0-66.0); PLATELET COUNT, AUTOMATED 185 10^3/uL (150-450); RED BLOOD COUNT 4.53 10^6/uL (4.30-6.10); WHITE BLOOD COUNT 4.2 10^3/uL (4.0-10.0)
[2020-04-10 12:39] LABS: ACETAMINOPHEN LEVEL < 2.0 UG/ML (10.0-30.0); ALBUMIN 3.8 GM/DL (3.2-5.2); ALT/SGPT 35 U/L (12-78); AMPHETAMINES LEVEL URINE NEGATIVE (NEGATIVE); BARBITURATES URINE NEGATIVE (NEGATIVE); BENZODIAZEPINES URINE NEGATIVE (NEGATIVE); BILIRUBIN,TOTAL 0.5 MG/DL (0.2-1.0); BLOOD UREA NITROGEN 18 MG/DL (7-18); CANNABINOIDS URINE NEGATIVE (NEGATIVE); CARBON DIOXIDE LEVEL 30 MEQ/L (21-32); CHLORIDE LEVEL 104 MEQ/L (98-107); COCAINE METABOLITE URINE NEGATIVE (NEGATIVE); CREATININE FOR GFR 0.76 MG/DL (0.70-1.30); ETHYL ALCOHOL (ETHANOL) 0.004 % (0.000-0.010); GLOMERULAR FILTRATION RATE > 60.0 (>56); GLUCOSE, FASTING 71 MG/DL (70-100); METHADONE URINE NEGATIVE (NEGATIVE); OPIATES URINE NEGATIVE (NEGATIVE); PHENCYCLIDINE URINE NEGATIVE (NEGATIVE); POTASSIUM SERUM 4.3 MEQ/L (3.5-5.1); SODIUM LEVEL 134 MEQ/L (136-145); TOTAL PROTEIN 6.8 GM/DL (6.4-8.2)
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
== END 2020-01-24 08:27 | disposition home or self-care (01) | DRG 750 ==
LOC: M ED 15:00 → M PSY 01-22 12:15
PROVIDERS: ADMIT Psychiatry & Neurology Addiction Medicine; ATTEND Psychiatry & Neurology Addiction Medicine
DX: F25.9 Schizoaffective disorder, unspecified (principal); Z79.899 Other long term (current) drug therapy

== ENCOUNTER 2021-01-02 13:14 | Emergency (ER) | payer MEDICAID, OTHER ==
[~2021-01-02] VITALS: Ht 167.6 cm; Wt 80.9 kg
[2021-01-02] MEDS ORDERED: MAGIC MOUTHWASH *ED ONLY* 5ML ORAL SYRINGE SS ONE (17:55)
[2021-01-02] MEDS ORDERED: CLAR10CA3 PO (18:41)
[2021-01-02] MEDS ORDERED: MAGICMW SSP (18:41)
[2021-01-02 19:02] VITALS: BP 143/82
== END 2021-01-02 19:04 | disposition home or self-care (01) ==
LOC: M ED 13:14
DX: J02.9 Acute pharyngitis, unspecified (principal); E78.5 Hyperlipidemia, unspecified; J45.909 Unspecified asthma, uncomplicated; R56.9 Unspecified convulsions; F20.9 Schizophrenia, unspecified; Z79.899 Other long term (current) drug therapy